=== PATIENT | male | born 1950 | race Caucasian/White ===

== ENCOUNTER 2022-04-18 06:13 | Day surgery (SDC) | payer MEDICARE ==
[~2022-04-18 06:13] MED LIST: ALPRAZolam 0.25 MG TAB PO PRN; ALPRAZolam 0.5 MG TAB PO PRN; ASPIRIN 325 MG TAB PO STA; ATORVASTATIN 80 MG TAB PO STA; HEPARIN SODIUM,PORCINE 10,000 UNIT in SODIUM CHLORIDE 0.9% 1,000 ML IRRIGATION PRN; HEPARIN SODIUM,PORCINE 2,500 UNIT in SODIUM CHLORIDE 0.9% 250 ML IRRIGATION PRN; NITROGLYCERIN SL TABS 0.4 MG TAB SUBLINGUAL PRN; SODIUM CHLORIDE 0.9% 1,000 ML in EMPTY BAG 1 BAG IV SCH
[2022-04-18] MEDS ORDERED: SODIUM CHLORIDE 0.9% 1,000 ML IV ONE (06:18)
[2022-04-18 06:56] LABS: Glucose,Whole Blood 176 mg/dL (70-110)
[2022-04-18] MEDS ORDERED: VERAPAMIL 2.5 MG/ML 2 ML AMP ONE (07:19)
[2022-04-18 07:30] VITALS: TEMP 98.8
[2022-04-18] MEDS ORDERED: LIDOCAINE 1% INJ 10MG/ML (5 ML VIAL-PF) SQ ONE (07:42)
[2022-04-18] MEDS ORDERED: MIDAZOLAM 2 MG/2 ML VIAL IV ONE (07:43)
[2022-04-18] MEDS ORDERED: HEPARIN SODIUM 1,000 UN/ML (10ML VL) ONE (07:45)
[2022-04-18] MEDS ORDERED: HEPARIN SODIUM 1,000 UN/ML (10ML VL) IV ONE (07:46)
[2022-04-18] MEDS ORDERED: VERAPAMIL SYRINGE (5 MG/10 ML) INTRAARTER ONE (07:46)
[2022-04-18] MEDS ORDERED: NITROGLYCERIN SL TABS 0.4 MG TAB SUBLINGUAL ONE ×2 (07:49→07:50)
[2022-04-18] MEDS ORDERED: IOPAMIDOL-370 125ML BTL INJ ONE (07:52)
--- NOTE | 2022-04-18 08:22 | P.CARDCATH ---
Description of Procedure: PROCEDURES PERFORMED: Left heart catheterization, bilateral coronary angiography INDICATION: Cardiomyopathy HISTORY: Patient is a pleasant 71-year-old male with history of persistent atrial fibrillation who presented with heart failure and found to have new-onset cardiomyopathy. Echo did not mention significant aortic stenosis however does have a harsh systolic murmur consistent with aortic stenosis. CONSENT:I have discussed the risks, benefits and alternative therapies for the above-mentioned procedure and for both sedation/analgesia as well as necessary blood product administration, if indicated, as they pertain to this patient. The patient has indicated understanding and acceptance of the risks and procedures discussed. PROCEDURE: After the risks, benefits and alternatives of the above mentioned procedure explained in detail with the patient, informed consent was obtained. Patient was taken to the catheterization lab and prepped and draped in usual fashion. 1% lidocaine was used to anesthetize the right radial artery. A 6- Czech sheath was placed in the right radial artery using modified Seldinger technique. Left coronary angiography was performed with a 5-Czech JL 3.5 catheter and right coronary angiography was performed with a 5-Czech JR5 catheter in various views. A 5-Czech AR2 catheter with a straight wire was inserted into the left ventricle and pressure measurements were obtained. The right radial sheath was removed and a TR band was placed with hemostasis achieved. The patient tolerated the procedure well. Patient was transported back to the post catheterization holding area in stable condition. Conscious Sedation: Patient was monitored under the direct supervision of vision of myself for conscious sedation using Versed and fentanyl for a total duration of 23 minutes HEMODYNAMICS: Aortic: 101/92 LV: 171/20, LVEDP 35 mean gradient 55 mmHg, peak to peak 80 mmHg SELECTIVE CORONARY ARTERIOGRAPHY: LEFT MAIN: The left main is a large caliber vessel which bifurcates into the LAD and circumflex. There is no significant stenosis. LEFT ANTERIOR DESCENDING CORONARY ARTERY: LAD is a large caliber vessel which wraps around to the apex. There are mild luminal irregularities including 10- 20% proximal and mid LAD stenosis. LEFT CIRCUMFLEX CORONARY ARTERY: Left circumflex is a large caliber vessel without significant stenosis. The circumflex gives off the PDA and is the dominant vessel RIGHT CORONARY ARTERY: The right coronary artery is a small caliber vessel which gives off an acute marginal branch and is nondominant. There is no significant stenosis. FINAL IMPRESSION: 1. Relatively normal coronary arteries with only 10-20% proximal and mid LAD stenosis. 2. Severe aortic stenosis with mean gradient 55 mmHg 3. Extremely elevated left sided filling pressures 4. Atrial fibrillation with mild RVR throughout procedure heart rates in the 100 to 115 range PLAN: 1. Aggressive risk factor modification per most recent ACC/AHA guidelines. 2. Increase diuresis 3. Further workup for severe aortic stenosis with SACHA for aortic valve replacement 4. Given continued uncontrolled A. fib rhythm control with amiodarone and SACHA cardioversion
[2022-04-18] MEDS ORDERED: BUMETANIDE 1 MG TAB PO SCH (09:00)
[2022-04-18 11:52] LABS: African American GFR (CKD) >90 (>60 ml/min/1.73 sqM); Anion Gap 7 mmol/L; Blood Urea Nitrogen 23 mg/dL (9-20); Calcium 8.7 mg/dL (8.4-10.2); Carbon Dioxide 32 mmol/L (22-30); Chloride 100 mmol/L (98-107); Glucose 174 mg/dL (74-99); Non-African American GFR(CKD) >90 (>60 ml/min/1.73 sqM); Potassium 3.8 mmol/L (3.5-5.1); Sodium 139 mmol/L (137-145)
[2022-04-18 14:12] VITALS: RESP 18
[2022-04-18 14:22] VITALS: BP 143/71; PULSE 106
== END 2022-04-18 13:12 | disposition home or self-care (01) ==
LOC: CATHCVL 06:13
PROVIDERS: ATTEND Internal Medicine
DX: I35.0 Nonrheumatic aortic (valve) stenosis (principal); I42.9 Cardiomyopathy, unspecified; I48.19 Other persistent atrial fibrillation; G47.33 Obstructive sleep apnea (adult) (pediatric); I11.0 Hypertensive heart disease with heart failure; I50.23 Acute on chronic systolic (congestive) heart failure; E78.5 Hyperlipidemia, unspecified; E11.9 Type 2 diabetes mellitus without complications; Z79.899 Other long term (current) drug therapy
CPT/HCPCS: 93458; 80048; C1769 ×2; C1894; J2250; J2001; J1644; Q9967

== ENCOUNTER → 2022-04-24 | Outpatient (CLI) | payer MEDICARE ==
[2022-04-24 10:35] LABS: Prothrombin Time 10.5 sec (9.0-12.0)
[2022-04-24 10:38] LABS: ALT 24 U/L (4-49); AST 35 U/L (17-59); African American GFR (CKD) >90 (>60 ml/min/1.73 sqM); Albumin 3.8 g/dL (3.5-5.0); Albumin/Globulin Ratio 1.3; Alkaline Phosphatase 80 U/L (38-126); Anion Gap 7 mmol/L; Blood Urea Nitrogen 17 mg/dL (9-20); Calcium 8.8 mg/dL (8.4-10.2); Carbon Dioxide 35 mmol/L (22-30); Chloride 93 mmol/L (98-107); Globulin 2.9 g/dL; Glucose 226 mg/dL (74-99); Magnesium 1.7 mg/dL (1.6-2.3); Non-African American GFR(CKD) 89 (>60 ml/min/1.73 sqM); Potassium 3.9 mmol/L (3.5-5.1); Sodium 135 mmol/L (137-145); Total Bilirubin 1.2 mg/dL (0.2-1.3); Total Protein 6.7 g/dL (6.3-8.2)
[2022-04-24 10:47] LABS: Basophils # (A) 0.1 k/uL (0-0.2); Basophils % (A) 1 %; Eosinophils # (A) 0.2 k/uL (0-0.7); Eosinophils % (A) 3 %; HGB 13.5 gm/dL (13.0-17.5); Lymphocytes # (A) 1.2 k/uL (1.0-4.8); Lymphocytes % (A) 18 %; MCH 31.6 pg (25.0-35.0); MCHC 33.6 g/dL (31.0-37.0); Mean Platelet Volume 7.5; Monocytes # (A) 0.3 k/uL (0-1.0); Monocytes % (A) 5 %; Neutrophils # (A) 4.5 k/uL (1.3-7.7); Neutrophils % (A) 71 %; Platelet Count 256 k/uL (150-450); RBC 4.25 m/uL (4.30-5.90); RDW 13.9 % (11.5-15.5); WBC 6.4 k/uL (3.8-10.6)
[2022-04-24 11:41] LABS: Appearance,Urine Clear (Clear); Bilirubin,Urine Negative (Negative); Blood,Urine Negative (Negative); Color,Urine Yellow; Glucose,Urine (UA) Negative (Negative); Ketones,Urine Trace (Negative); Leukocyte Esterase,Urine Negative (Negative); Mucus,Urine Occasional /hpf; Nitrite,Urine Negative (Negative); Protein,Urine 3+ (Negative); RBC,Urine <1 /hpf (0-5); Specific Gravity,Urine 1.028 (1.001-1.035); WBC,Urine 1 /hpf (0-5)
[2022-04-24 11:57] LABS: T4, Free (Free Thyroxine) 1.45 ng/dL (0.78-2.19)
--- NOTE | 2022-04-24 13:37 | CT ---
EXAMINATION TYPE: CT TAVR Planning DATE OF EXAM: 04/24/2022 HISTORY: TAVR planning CT DLP: 4497.20 mGycm Automated Exposure Control for Dose Reduction was Utilized. CONTRAST: CT scan of the chest, abdomen and pelvis is performed with IV Contrast, patient injected with 125 mL of Isovue 370. COMPARISON: None TECHNIQUE: Helical imaging obtained through the chest, abdomen and pelvis during arterial phase nelly moy administration of radiographic contrast intravenously. FINDINGS: See report from [facility] regarding preprocedural planning CHEST: Lower Neck and Thyroid: No significant findings Lungs: No pneumothorax. Trace bilateral pleural effusions with associated atelectasis. Right lower lo be 3 mm pulmonary nodule (series 10, image 59). Right upper lobe pulmonary nodule (series 10, image 5 2). Central Airway: No significant findings Pleura: No significant findings Pulmonary Arteries: No significant findings Heart and Pericardium: Mild cardiomegaly. No pericardial effusion. Marked aortic valvular calcificati ons. Mild coronary arterial calcifications. Lymph Nodes: No significant findings Mediastinum & Esophagus: Mildly prominent right paratracheal lymph nodes measuring less than [address] axis. Soft tissues: Bilateral gynecomastia. ABDOMEN/PELVIS: Please note arterial phase of the imaging limits detailed evaluation of the solid abdominal organs. Liver: No significant findings Spleen: No significant findings Kidneys: No significant findings Adrenal Glands: No significant findings Pancreas: No significant findings Gallbladder: No significant findings Bowel and Mesentery: No significant findings Lymph Nodes: No significant findings Urinary Bladder: No significant findings Pelvic Organs: No significant findings Other: Small fat filled hernia. Other Lines/Tubes/Devices/Hardware: None IMPRESSION: 1. Trace bilateral pleural effusions with mild cardiomegaly. 2. Mild coronary arterial calcifications which sign of coronary artery disease. 3. Severe calcification of the aortic valve.
--- NOTE | 2022-04-24 14:33 | US ---
EXAMINATION TYPE: US carotid duplex BILAT DATE OF EXAM: 04/24/2022 COMPARISON: NONE CLINICAL HISTORY: 71-year-old male I35.1 NONRHEUMATIC AORTIC (VALVE) INSUFFICIENCY. TECHNIQUE: Carotid duplex ultrasound examination. Indirect Doppler criteria was utilized. 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 IMPRESSION: Technically very difficult exam. No findings to suggest hemodynamically significant internal carotid artery stenosis on either side. Criteria for Assigning % of Stenosis / Diameter reduction (Estimation based on the indirect measurements of the internal carotid artery velocities (ICA PSV). 1. Normal (no stenosis)=ICA PSV < 125 cm/s: ratio < 2.0: ICA EDV<40 cm/s. 2. Less than 50% stenosis=ICA PSV < 125 cm/s: ratio < 2.0: ICA EDV<40 cm/s. 3. 50 to 69% stenosis=ICA PSV of 125 to 230 cm/s: ration 2.0 ? 4.0: ICA EDV 40-100 cm/s. 4. Greater than 70% stenosis to near occlusion= ICA PSV > 230 cm/s: ratio > 4.0: ICA EDV > 100 cm/s. 5. Near occlusion= ICA PSV velocities may be low or undetectable: variable ratio and ICA EDV. 6. Total occlusion=unable to detect flow.
[2022-04-24 18:42] LABS: Hepatitis A Antibody IgM Nonreactive (Nonreactive); Hepatitis B Core IgM Nonreactive (Nonreactive); Hepatitis B Surface Antigen Nonreactive (Nonreactive); Hepatitis C IgG Antibody Nonreactive (Nonreactive)
[2022-04-24 18:53] LABS: Chol/HDL Ratio 2.47 Ratio; LDL Cholesterol,Calculated 36.9 mg/dL (0.0-131.0)
== END | disposition home or self-care (01) ==
LOC: LABWHC1 09:10
PROVIDERS: ATTEND Thoracic Surgery (Cardiothoracic Vascular Surgery)
DX: Z01.818 Encounter for other preprocedural examination (principal); I35.1 Nonrheumatic aortic (valve) insufficiency; E87.8 Other disorders of electrolyte and fluid balance, not elsewhere classified; E07.9 Disorder of thyroid, unspecified; Z79.01 Long term (current) use of anticoagulants; I35.0 Nonrheumatic aortic (valve) stenosis; E11.9 Type 2 diabetes mellitus without complications; N28.9 Disorder of kidney and ureter, unspecified; E78.5 Hyperlipidemia, unspecified; R35.0 Frequency of micturition; Z79.899 Other long term (current) drug therapy; R58 Hemorrhage, not elsewhere classified
CPT/HCPCS: 94150; 84439; 83880; 80061; 80053; 80074; 84443; 83735; 85025; 85610; 85730; 81001; 87086; 83036; 93880; 71275; 36415 ×2; 74174; 93005; Q9967

== ENCOUNTER → 2022-04-29 | Day surgery (SDC) | payer MEDICARE ==
[~2022-04-29] MED LIST changes: -ALPRAZolam 0.25 MG TAB PO PRN; -ALPRAZolam 0.5 MG TAB PO PRN; +APIXABAN 5 MG TAB PO STA; -ASPIRIN 325 MG TAB PO STA; -ATORVASTATIN 80 MG TAB PO STA; +ETOMIDATE 2 MG/ML 10 ML VIAL ONE; -HEPARIN SODIUM,PORCINE 10,000 UNIT in SODIUM CHLORIDE 0.9% 1,000 ML IRRIGATION PRN; -HEPARIN SODIUM,PORCINE 2,500 UNIT in SODIUM CHLORIDE 0.9% 250 ML IRRIGATION PRN; +INSULIN ASPART (NovoLOG) 100 UNIT/ML VIAL SQ ONE; -NITROGLYCERIN SL TABS 0.4 MG TAB SUBLINGUAL PRN; +SODIUM CHLORIDE 0.9% 1,000 ML IV SCH; -SODIUM CHLORIDE 0.9% 1,000 ML in EMPTY BAG 1 BAG IV SCH
[2022-04-29 07:08] LABS: Glucose,Whole Blood 208 mg/dL (70-110)
--- NOTE | 2022-04-29 08:07 | P.TEE ---
Description of Procedure(s): Procedure performed: Transesophageal Echocardiogram with color flow doppler, pulsed wave doppler and continuous wave doppler, attempted cardioversion 2 Moderate conscious sedation: Moderate conscious sedation was supplied by anesthesia, see separate report Complications: none Indications: Severe aortic stenosis, systolic heart failure, atrial fibrillation PROCEDURE: After the risks, benefits and alternatives of the above mentioned procedure was explained in detail with the patient, informed consent was obtained. Patient was brought to the lab in a fasting state. Patient was given sedation by anesthesia. The throat was sprayed with Hurricane to anesthetize the throat. A lubricated Omni probe was then introduced into the esophagus and stomach and multiple views were obtained. 2D echo with color flow doppler, pulsed wave doppler and continuous wave doppler was utilized. Patient had difficulty oxygenating and therefore only limited views were able to be obtained. The probe was then removed. Attempted cardioversion 2 with 200 J however unsuccessful. Patient tolerated the procedure moderately well. Patient was transferred to the post procedure area in stable and satisfactory condition. FINDINGS: 1. The aortic valve is tricuspid with severe aortic stenosis. There is a calcified mobile echodensity of the commissure of the left and non coronary cusps which may represent a healed vegetation vs less likely primary cardiac mass. There is mild aortic insufficiency. 2. The mitral valve appears be normal with mild mitral regurgitation. 3. Tricuspid valve not fully evaluated. 4. The interatrial septum appears intact however no bubble study performed. 5. Left atrial appendage is free of clot. 6. Left ventricular ejection fraction 35%.
[2022-04-29 08:08] VITALS: TEMP 98
[2022-04-29 09:24] VITALS: PULSE 92; RESP 18
[2022-04-29 17:21] VITALS: BP 97/58
== END ==
LOC: CATHCVL 06:17
PROVIDERS: ATTEND Internal Medicine
DX: I08.0 Rheumatic disorders of both mitral and aortic valves (principal); I25.10 Atherosclerotic heart disease of native coronary artery without angina pectoris; I48.11 Longstanding persistent atrial fibrillation; I42.8 Other cardiomyopathies; I11.0 Hypertensive heart disease with heart failure; I50.23 Acute on chronic systolic (congestive) heart failure; E78.5 Hyperlipidemia, unspecified; G47.33 Obstructive sleep apnea (adult) (pediatric); Z99.89 Dependence on other enabling machines and devices; E11.9 Type 2 diabetes mellitus without complications; E03.9 Hypothyroidism, unspecified; Z79.890 Hormone replacement therapy; I87.2 Venous insufficiency (chronic) (peripheral); E66.01 Morbid (severe) obesity due to excess calories; Z68.43 Body mass index [BMI] 50.0-59.9, adult; N28.9 Disorder of kidney and ureter, unspecified; Z85.46 Personal history of malignant neoplasm of prostate; Z98.890 Other specified postprocedural states; Z79.84 Long term (current) use of oral hypoglycemic drugs; Z79.02 Long term (current) use of antithrombotics/antiplatelets; Z79.1 Long term (current) use of non-steroidal anti-inflammatories (NSAID); Z79.83 Long term (current) use of bisphosphonates; Z79.2 Long term (current) use of antibiotics; Z79.899 Other long term (current) drug therapy
CPT/HCPCS: 87040; 92960

== ENCOUNTER 2022-05-14 05:57 | Inpatient (IN) | payer MEDICARE ==
[2022-05-13 11:11] VITALS: BMI 50.9
[2022-05-14] MEDS ORDERED: CLOPIDOGREL 75 MG TAB PO ONE (06:00)
[2022-05-14] MEDS ORDERED: CLEVIDIPINE BUTYRATE 25 MG in EMPTY BAG 1 BAG IV PRN (06:00)
[2022-05-14] MEDS ORDERED: METOPROLOL TARTRATE 25 MG TAB PO ONE (06:00)
[2022-05-14] MEDS ORDERED: TRANEXAMIC ACID 2,000 MG in SODIUM CHLORIDE 0.9% 80 ML IV PRN (06:00)
[2022-05-14] MEDS ORDERED: PROTAMINE SULFATE 250 MG in EMPTY BAG 1 BAG IV PRN (06:00)
[2022-05-14] MEDS ORDERED: LACTATED RINGERS 1,000 ML IV SCH (06:00)
[2022-05-14] MEDS ORDERED: ATORVASTATIN 10 MG TAB PO ONE (06:00)
[2022-05-14] MEDS ORDERED: SODIUM CHLORIDE 0.9% 500 ML 500 ML INTRAARTER PRN (06:00)
[2022-05-14] MEDS ORDERED: INSULIN REGULAR 100 UNIT in SODIUM CHLORIDE 0.9% 100 ML IV PRN (06:00)
[2022-05-14] MEDS ORDERED: ASPIRIN 325 MG TAB PO ONE (06:00)
[2022-05-14] MEDS ORDERED: ELECTROLYTE-A SOLUTION 1,000 ML with POTASSIUM CHLORIDE 100 MEQ, MAGNESIUM SULFATE 16 M... IV PRN ×5 (06:00)
[2022-05-14] MEDS ORDERED: ceFAZolin 3 GM in SODIUM CHLORIDE 0.9% 100 ML IVPB ONE (06:00)
[2022-05-14] MEDS ORDERED: NITROGLYCERIN-D5W PMX 25 MG/250 ML BTL IV PRN (06:00)
[2022-05-14 06:31] LABS: Glucose,Whole Blood 255 mg/dL (70-110)
[2022-05-14] MEDS ORDERED: SODIUM CHLORIDE 0.9% 1,000 ML IV ONE ×2 (06:52→14:34)
[2022-05-14 06:54] LABS: HCT 37.9 % (39.0-53.0); HGB 12.8 gm/dL (13.0-17.5); MCH 30.5 pg (25.0-35.0); MCHC 33.9 g/dL (31.0-37.0); MCV 90.1 fL (80.0-100.0); Mean Platelet Volume 6.9; Platelet Count 273 k/uL (150-450); RBC 4.21 m/uL (4.30-5.90); RDW 14.3 % (11.5-15.5); WBC 11.5 k/uL (3.8-10.6)
[2022-05-14] MEDS: INSULIN ASPART (NovoLOG) 100 UNIT/ML VIAL SQ SCH (06:56)
[2022-05-14 07:01] LABS: Partial Thromboplastin Time 24.9 sec (22.0-30.0); Prothrombin Time 10.9 sec (9.0-12.0)
[2022-05-14 07:05] LABS: ALT 39 U/L (4-49); AST 32 U/L (17-59); African American GFR (CKD) >90 (>60 ml/min/1.73 sqM); Albumin 4.1 g/dL (3.5-5.0); Alkaline Phosphatase 99 U/L (38-126); Anion Gap 8 mmol/L; Blood Urea Nitrogen 30 mg/dL (9-20); Calcium 8.8 mg/dL (8.4-10.2); Carbon Dioxide 36 mmol/L (22-30); Chloride 92 mmol/L (98-107); Glucose 253 mg/dL (74-99); Non-African American GFR(CKD) 81 (>60 ml/min/1.73 sqM); Potassium 3.1 mmol/L (3.5-5.1); Sodium 136 mmol/L (137-145); Total Bilirubin 2.5 mg/dL (0.2-1.3); Total Protein 7.3 g/dL (6.3-8.2)
[2022-05-14] MEDS ORDERED: VERAPAMIL 2.5 MG/ML 2 ML AMP ONE ×2 (07:51→11:21)
[2022-05-14] MEDS ORDERED: FUROSEMIDE 10 MG/ML 4 ML VIAL IV STA (08:08)
--- NOTE | 2022-05-14 08:15 | XR ---
EXAMINATION TYPE: XR chest 1V portable DATE OF EXAM: 05/14/2022 COMPARISON: 08/09/2014 HISTORY: Scheduled for TAVR today, presented with leukocytosis and shortness of breath TECHNIQUE: Single frontal view of the chest is obtained. FINDINGS: The heart is enlarged and there is pulmonary vascular congestion. There are no focal airsp randi opacities. Calcified aortic arch. No acute osseous abnormalities. IMPRESSION: Early CHF.
[2022-05-14] MEDS ORDERED: POTASSIUM CHLORIDE 10 MEQ in WATER FOR INJECTION 1 100ML.BAG IVPB SCH (09:00)
[2022-05-14] MEDS ORDERED: POTASSIUM CHLORIDE ER 20 MEQ TAB.ER PO STA (09:10)
[2022-05-14] MEDS ORDERED: METOPROLOL TARTRATE 5 MG/5 ML VIAL IVP ONE (11:01)
[2022-05-14] MEDS ORDERED: fentaNYL (PF) 50 MCG/ML 2 ML AMP ONE (11:01)
[2022-05-14] MEDS ORDERED: ROCURONIUM 10 MG/ML (5 ML VIAL) IV ONE (11:01)
[2022-05-14] MEDS ORDERED: MIDAZOLAM 2 MG/2 ML VIAL ONE (11:01)
[2022-05-14] MEDS ORDERED: CALCIUM CHLORIDE 100 MG/ML 10 ML SYRINGE ONE (11:01)
[2022-05-14] MEDS ORDERED: HEPARIN SODIUM,PORCINE 10,000 UNIT/ML 1 ML VIAL ONE (11:01)
[2022-05-14] MEDS ORDERED: ETOMIDATE 2 MG/ML 10 ML VIAL ONE (11:01)
[2022-05-14] MEDS ORDERED: VASOPRESSIN 20 UNIT/ML 1 ML VIAL ONE (11:01)
[2022-05-14] MEDS ORDERED: ESMOLOL 100 MG/10 ML VIAL ONE (11:01)
[2022-05-14] MEDS ORDERED: LIDOCAINE 2% INJ 20 MG/ML (2 ML VIAL) ONE (11:01)
[2022-05-14] MEDS ORDERED: PHENYLEPHRINE-0.9% NACL SYG 1,000 MCG/10 ML SYRINGE ONE (11:01)
[2022-05-14] MEDS ORDERED: PROPOFOL 10 MG/ML 20 ML VIAL IV ONE (11:01)
[2022-05-14] MEDS ORDERED: PROTAMINE SULFATE 10 MG/ML 5 ML VIAL IV ONE (11:01)
[2022-05-14] MEDS ORDERED: SUCCINYLCHOLINE CHLORIDE 200 MG/10 ML VIAL IV ONE (11:01)
[2022-05-14] MEDS ORDERED: ONDANSETRON 4 MG/2 ML VIAL IVP PRN (13:29)
[2022-05-14] MEDS ORDERED: CALCIUM GLUCONATE IN NACL 2 GM in SALINE 1 100ML.BAG IVPB PRN (13:29)
[2022-05-14] MEDS ORDERED: traMADol 50 MG TAB PO PRN (13:29)
[2022-05-14] MEDS ORDERED: Potassium Replacement Protocol 1 EACH MISC MISCELLANE PRN ×2 (13:29→18:23)
[2022-05-14] MEDS ORDERED: NALOXONE 0.4 MG/ML 1 ML VIAL IV PRN (13:29)
[2022-05-14] MEDS ORDERED: IPRATROPIUM-ALBUTEROL 3 ML NEB INHALATION PRN (13:29)
[2022-05-14] MEDS ORDERED: ACETAMINOPHEN TAB 325 MG TAB PO PRN (13:29)
[2022-05-14] MEDS ORDERED: DEXTROSE 50% SYRINGE 50 ML IVP PRN ×2 (13:29)
[2022-05-14] MEDS ORDERED: Magnesium Replacement Protocol 1 EACH MISC MISCELLANE PRN ×2 (13:29→18:25)
[2022-05-14] MEDS ORDERED: bisacodyL 10 MG SUPP RECTAL PRN (13:29)
[2022-05-14] MEDS ORDERED: ARTIFICIAL TEARS-HYPROMELLOSE DROPS 15 ML BTL BOTH EYES PRN (13:29)
[2022-05-14] MEDS ORDERED: INSULIN REGULAR 100 UNIT in SODIUM CHLORIDE 0.9% 100 ML IV SCH (13:29)
--- NOTE | 2022-05-14 13:29 | P.ANPRN ---
Procedure Note - Anesthesia - SACHA Intraop Pre Bypass SACHA Intraop - Anesthesia Indication: Transcatheter aortic valve replacement Date of Procedure: 05/14/22 Pre-operative Diagnosis: Critical aortic stenosis Post-operative Diagnosis: Critical aortic stenosis status post transcatheter aortic valve replacement Surgeon: Sonia Prather Left Ventricle: Ejection fraction 20-25%. Global hyperkinesis seen. Left Ventricle Hypertrophy: Yes (Mild) R. Ventricle Function: Normal Aortic Valve: Severely calcified aortic valve seen. There is a mass sitting on the left coronary cusp which is mobile but it doesn't appear to be obstructing the left main system. The mass is a .25 centimeter in width. Mean gradient across the aortic valve is 72 mmHg and the peak gradient is 92 mmHg. Aortic valve area is 0.7 Cm2. Mild AI seen. Anatomy: Trileaflet Aortic Stenosis: Severe Aortic Regurgitation: Trace Mitral Stenosis: None Mitral Regurgitation: Moderate Tricuspid Stenosis: None Tricuspid Regurgitation: Mild Pulmonic Stenosis: None R. Atrial Dilation: No R. Atrial PFO: No L. Atrial Dilation: No Aortic Calcification: None Plural Effusion: None - SACHA Intraop Post Bypass SACHA Intraop Post Bypass Procedure Performed: Transcatheter aortic valve replacement Left Ventricle: Ejection fraction improved to 25-30% now. Regional Wall Motion Abnormalities: None R. Ventricle Function: Normal Aortic Valve: Prosthetic aortic valve seen in situ. Appears to be seated well. Peak gradient across the valve was 8 mmHg and mean gradient is 6 mm hg. There is a trace central aortic regurgitation and also a mild paravalvular leak seen. These doesn't appear to be hemodynamically significant. Mitral Valve: Unchanged Tricuspid: Unchanged Pulmonic: Unchanged Aortic Dissection: No
--- NOTE | 2022-05-14 13:36 | P.OP ---
Description of Procedure: Transcatheter Aoritc Valve Replacement Operative report PROCEDURE PERFORMED: 1. Percutaneous Aortic Valve Implantation using a 34 mm Evolut-FX. 2. Transesophageal echocardiography (performed by anesthesia) 3. Ultrasound guided access and repair of right femoral artery access site by Perclose closure device. 4. Placement of temporary pacemaker wire. 5. Aortic root angiography 6. [place] embolic protection device placement INDICATIONS: 1. 71 year-old with a history of severe symptomatic aortic valve stenosis. PERFORMING PHYSICIANS: 1. Federico Francisco DO Interventional Cardiology 2. Carlitos Arevalo MD Interventional Cardiology. 3. Sonia Prather MD, Cardiothoracic Surgeon. SEDATION: General anesthesia provided by anesthesia, see separate note APPROACH: Right femoral artery via percutaneous approach PROCEDURE DESCRIPTION: The patient was discussed at valve clinic with multidisciplinary approach with cardiothoracic surgeon as well as pcat instructor and thought better treated with TAVR. Risks, benefits, and alternatives of the procedure had been explained to the patient who understood the risks and agreed to proceed. After consents were obtained, patient was brought to the transcatheter aortic valve implantation room in the cardiac label printing machinist and general anesthesia was provided by the anesthesiologist (see separate report). Once full body sterile prep was performed, left femoral venous access was obtained and a temporary pacemaker was placed in the right ventricle. Pacing threshholds were checked and deemed appro priate. Next the left femoral artery was accessed using a modified Seldinger technique, ultrasound guidance and micropuncture technique. A 6 Burkinan Rabi sheath was placed in the left femoral artery. Next, a 6-Burkinan pigtail catheter was advanced into the aorta and positioned in the aortic root, aortic root angiography was performed to determine optimal deployment angle. The right femoral artery was accessed using modified Seldinger technique, micropuncture technique and under direct ultrasound guidance. Femoral angiogram was done showing access in the common femoral artery and a 6Fr sheath was placed. Next preclose technique was performed using 2 Percloses. Next a 0.035 Lunderquist wire was placed in the Aorta via a pigtail catheter. Over that the arteriotomy was serially dilated and a 18 Fr [place] sheath was placed. A 6-Burkinan radial sheath was placed in the right radial artery using modified Seldinger technique. The [place] device was advanced over a 0.014 wire and deployed in the innominate artery and left carotid artery. Next a 6F- AL1 catheter was advanced over a wire to the aortic root. A straight wire was advanced through the catheter and used to cross the severely stenotic valve. The AL1 was then exchanged for a 6Fr pigtail catheter and pressure measurements were obtained. The 0.035 Lunderquist wire was then positioned in the apex. Next a 34 mm Evolut-FX was advanced. The valve was then positioned across the aortic valve and confirmed with aortic root angiography. The valve was initially partially deployed and there was concern of a calcified mass on the left coronary leaflet possibly causing obstruction of the left main. With the valve partially deployed, there was no impingment on the left main. The valve was then fully deployed. There was some mild central regurgitation which appeared related to underexpanded valve and therefore the valve was post dilated with a 26mm Z Med balloon. The delivery system was withdrawn back into the arch and an aortic root injection in conjunction with SACHA demonstrated a satisfactory result. There was no para valvular leak. There was no evidence of any other significant abnormalities. The preclose Perclose was then deployed in the right femoral artery and hemostasis was achieved. The pigtail was then advanced to the level of the iliac bifurcation via the left femoral access. Femoral angiogram was performed that showed no contrast leak. The left femoral angiogram demonstrated an arteriotomy in the common femoral artery and this was repaired using a 6F angioseal device with complete hemostasis. The temporary venous pacemaker was removed and the left femoral venous sheath was removed and hemoastasis was achieved. The patient was then transported to the ICU in hemodynamically stable condition, requiring no pressor support. COMPLICATIONS: None CONCLUSION: 1. Implantaion of 34 Evolut-FX transcatheter aortic valve via right femoral approach under SACHA and fluoro guidance with no para-valvular aortic regurgitation. 2. Placement of temporary pacemaker wire 3. Aortic Root Aortogram. 4. Post TAVR balloon aortic valvuloplasty with a 26mm Z Med balloon RECOMMENDATIONS: The patient will be monitored in the ICU for hemodynamic and electrical stability. Patient will be on Eliquis and Plavix.
[2022-05-14] MEDS ORDERED: IOPAMIDOL-250 100ML BTL INTRAARTER ONE (13:37)
[2022-05-14 14:04] LABS: Glucose,Whole Blood 365 mg/dL (70-110)
[2022-05-14 14:24] LABS: ABG Base Excess 3.9 mmol/L; ABG HCO3 29 mmol/L (21-25); ABG Oxygen Saturation 98.4 % (94-97); ABG PCO2 53 mmHg (35-45); ABG PH 7.36 (7.35-7.45); ABG PO2 272 mmHg (83-108); ABG TCO2 31 mmol/L (19-24)
[2022-05-14 14:27] LABS: Allen Test Performed? no
[2022-05-14 14:32] LABS: Basophils % (A) 0 %; Eosinophils % (A) 0 %; HCT 38.6 % (39.0-53.0); HGB 12.4 gm/dL (13.0-17.5); Lymphocytes # (A) 1.1 k/uL (1.0-4.8); Lymphocytes % (A) 11 %; MCH 30.1 pg (25.0-35.0); MCHC 32.1 g/dL (31.0-37.0); MCV 93.7 fL (80.0-100.0); Mean Platelet Volume 7.4; Monocytes # (A) 0.5 k/uL (0-1.0); Monocytes % (A) 5 %; Neutrophils # (A) 8.2 k/uL (1.3-7.7); Neutrophils % (A) 82 %; Platelet Count 245 k/uL (150-450); RBC 4.11 m/uL (4.30-5.90); RDW 14.5 % (11.5-15.5)
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
[2022-05-14 14:33] LABS: INR 1.1 (<1.2); Prothrombin Time 11.1 sec (9.0-12.0)
--- NOTE | 2022-05-14 14:34 | XR ---
EXAMINATION TYPE: XR chest 1V portable DATE OF EXAM: 05/14/2022 2:29 PM COMPARISON: Chest radiographs from 05/14/2022 TECHNIQUE: XR chest 1V portable Portable AP radiograph of the chest. CLINICAL INDICATION:Male, 71 years old with history of Post Operative Cardiac Surgery; FINDINGS: Lungs/Pleura: No pleural effusion or pneumothorax. Linear right midlung opacity likely representing s carring or atelectasis. Pulmonary vascularity: Pulmonary vascular congestion. Heart/mediastinum: Cardiomediastinal silhouette is enlarged. Postsurgical changes from TAVR. Atheros clerotic calcifications are seen in the aorta. Musculoskeletal: No acute osseous pathology. Dorsal osteophytosis of the thoracic spine. Other findings: None Lines/Tubes: Endotracheal tube with distal tip 2.7 cm above the anton Nasogastric tube with its distal tip and side-port projecting under the diaphragm. IMPRESSION: 1. Cardiomegaly with pulmonary vascular congestion suggestive of CHF exacerbation. 2. Appropriate position of endotracheal and NG tubes.
[2022-05-14] MEDS: LACTATED RINGERS 1,000 ML IV SCH (14:39)
[2022-05-14] MEDS: NOREPINEPHRINE 4 MG in SODIUM CHLORIDE 0.9% 250 ML IV SCH ×2 (14:55→14:57)
[2022-05-14 15:02] LABS: Ionized Calcium 4.8 mg/dL (4.5-5.3)
[2022-05-14 15:08] LABS: Glucose,Whole Blood 270 mg/dL (70-110)
[2022-05-14 15:12] LABS: Albumin 3.8 g/dL (3.5-5.0); Calcium 8.7 mg/dL (8.4-10.2); Magnesium 1.7 mg/dL (1.6-2.3); Potassium 3.7 mmol/L (3.5-5.1); Total Bilirubin 2.3 mg/dL (0.2-1.3); Total Protein 6.7 g/dL (6.3-8.2)
--- NOTE | 2022-05-14 15:22 | IR ---
EXAMINATION TYPE: IR stent intravas non coronary DATE OF EXAM: 05/14/2022 CLINICAL HISTORY: TAVR TECHNIQUE: Fluoroscopy. COMPARISON: None. FINDINGS: Fluoroscopic guidance was provided during procedure performed by the coal crusher operator. A tota l of 22.9 minutes of fluoroscopic time was utilized during the procedure. Please see separate report for procedural details.. IMPRESSION: As Above.
[2022-05-14] MEDS: ceFAZolin 3 GM in SODIUM CHLORIDE 0.9% 100 ML IVPB SCH ×2 (15:52→23:38)
[2022-05-14] MEDS: HEPARIN SODIUM,PORCINE/PF 5,000 UNIT/0.5 ML SYRINGE SQ SCH ×2 (16:21→23:38)
[2022-05-14 16:25] LABS: Glucose,Whole Blood 229 mg/dL (70-110)
[2022-05-14] MEDS: IPRATROPIUM-ALBUTEROL 3 ML NEB INHALATION SCH ×3 (16:26→23:43)
[2022-05-14 17:29] LABS: Glucose,Whole Blood 221 mg/dL (70-110)
[2022-05-14 18:24] LABS: Glucose,Whole Blood 191 mg/dL (70-110)
[2022-05-14] MEDS: MAGNESIUM SULFATE-D5W PMX 1 GM in DEXTROSE/WATER 1 100ML.BAG IVPB SCH ×2 (18:46→21:20)
[2022-05-14] MEDS ORDERED: POTASSIUM BICARBONATE/CIT AC 20 MEQ TABLET.EFF NG-TUBE SCH (19:00)
--- NOTE | 2022-05-14 19:41 | OP ---
OPERATIVE REPORT CO-SURGEONS: Dr. Federico Francisco and Dr. Carlitos Arevalo. PREOPERATIVE DIAGNOSIS: Severe symptomatic aortic valve stenosis with a mobile calcification on the left cusp. POSTOPERATIVE DIAGNOSIS: Severe symptomatic aortic valve stenosis with a mobile calcification on the left cusp. PROCEDURES PERFORMED: 1. Insertion of a right ventricular temporary pacing wire via the right common femoral vein. 2. Deployment of a cerebral protection device sentinel. 3. Transcatheter aortic valve replacement using a 34 mm CoreValve FX. 4. Post dilatation with a 26 mm true balloon. DESCRIPTION OF PROCEDURE: The technical details will be dictated by Structural Cardiology. To mention that I fully participated in the initial deployment of a 34 mm CoreValve from Prevacus in proper anatomic position. SACHA showed essentially a valvular leak probably relating to a poor expansion of the valve. There was no paravalvular leak. For that reason, we decided to go with a post dilatation using a 26 mm balloon as the maximum annular diameter was 27 mm and that resulted into decreasing the central moderate aortic valve regurgitation to trace to mild. There were no changes to the patient's baseline atrial fibrillation and conduction. MMODL / IJN: [id number] /
[2022-05-14] MEDS: GLIMEPIRIDE 2 MG TAB PO SCH (19:57)
[2022-05-14 19:59] LABS: Glucose,Whole Blood 125 mg/dL (70-110)
[2022-05-14 21:16] LABS: Glucose,Whole Blood 143 mg/dL (70-110)
[2022-05-14] MEDS: DOCUSATE ORAL SOLN 100 MG/10 ML CUP NG-TUBE SCH (21:20)
[2022-05-14] MEDS: ATORVASTATIN 20 MG TAB PO SCH (21:20)
[2022-05-14] MEDS: FUROSEMIDE 10 MG/ML 4 ML VIAL IV SCH (21:20)
[2022-05-14] MEDS: AMIODARONE 200 MG TAB PO SCH (21:20)
[2022-05-14 22:04] LABS: Glucose,Whole Blood 156 mg/dL (70-110)
[2022-05-14 22:55] LABS: Glucose,Whole Blood 134 mg/dL (70-110)
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
[2022-05-15 00:01] LABS: Glucose,Whole Blood 133 mg/dL (70-110)
[2022-05-15] MEDS: NOREPINEPHRINE 4 MG in SODIUM CHLORIDE 0.9% 250 ML IV SCH (00:21)
[2022-05-15 03:09] LABS: Glucose,Whole Blood 137 mg/dL (70-110)
[2022-05-15] MEDS: IPRATROPIUM-ALBUTEROL 3 ML NEB INHALATION SCH ×6 (03:29→19:30)
[2022-05-15 04:12] LABS: Glucose,Whole Blood 157 mg/dL (70-110)
[2022-05-15 04:43] LABS: Basophils # (A) 0.1 k/uL (0-0.2); Basophils % (A) 1 %; Eosinophils # (A) 0.1 k/uL (0-0.7); Eosinophils % (A) 1 %; HCT 34.8 % (39.0-53.0); HGB 11.6 gm/dL (13.0-17.5); Lymphocytes % (A) 9 %; MCH 30.2 pg (25.0-35.0); MCHC 33.2 g/dL (31.0-37.0); Monocytes # (A) 0.7 k/uL (0-1.0); Monocytes % (A) 7 %; Neutrophils # (A) 8.8 k/uL (1.3-7.7); Neutrophils % (A) 81 %; Platelet Count 225 k/uL (150-450); RBC 3.83 m/uL (4.30-5.90); RDW 14.3 % (11.5-15.5); WBC 10.9 k/uL (3.8-10.6)
[2022-05-15 04:56] LABS: Ionized Calcium 4.6 mg/dL (4.5-5.3)
[2022-05-15 05:04] LABS: Albumin 3.3 g/dL (3.5-5.0); Calcium 8.2 mg/dL (8.4-10.2); Magnesium 1.9 mg/dL (1.6-2.3); Potassium 3.1 mmol/L (3.5-5.1); Total Bilirubin 1.6 mg/dL (0.2-1.3); Total Protein 6.1 g/dL (6.3-8.2)
[2022-05-15] MEDS: MAGNESIUM SULFATE-D5W PMX 1 GM in DEXTROSE/WATER 1 100ML.BAG IVPB SCH ×2 (05:25→06:32)
[2022-05-15] MEDS: POTASSIUM CHLORIDE 10 MEQ in WATER FOR INJECTION 1 100ML.BAG IVPB SCH ×4 (05:26→09:19)
[2022-05-15] MEDS: LEVOTHYROXINE 75 MCG TAB PO SCH (05:32)
[2022-05-15 05:52] LABS: Glucose,Whole Blood 167 mg/dL (70-110)
[2022-05-15 05:53] LABS: ABG Base Excess 10.4 mmol/L; ABG HCO3 35 mmol/L (21-25); ABG PCO2 51 mmHg (35-45); ABG PH 7.44 (7.35-7.45); ABG PO2 110 mmHg (83-108); ABG TCO2 36 mmol/L (19-24); Allen Test Performed? Yes
[2022-05-15 08:04] LABS: Glucose,Whole Blood 175 mg/dL (70-110)
[2022-05-15] MEDS: GLIMEPIRIDE 2 MG TAB PO SCH (08:07)
[2022-05-15] MEDS: ceFAZolin 3 GM in SODIUM CHLORIDE 0.9% 100 ML IVPB SCH (08:19)
[2022-05-15] MEDS: FUROSEMIDE 10 MG/ML 4 ML VIAL IV SCH ×2 (08:20→21:04)
--- NOTE | 2022-05-15 08:55 | XR ---
EXAMINATION TYPE: XR chest 1V portable DATE OF EXAM: 05/15/2022 Comparison: 05/14/2022 Clinical History: 71-year-old male Post Operative Cardiac Surgery Findings: Limited subdiaphragmatic right portable technique and large body habitus. Unable to adequately visual ize the distal aspect of the NG tube. ET tube tip 4.0 cm from the anton. Heart remains moderately en larged with diffuse interstitial density. There may be slight improving aeration in the right lower l maci. No appreciable pneumothorax. Impression: Moderate cardiomegaly and persistent pulmonary vascular congestion. Aeration may be slightly improvin g of the right lower lung.
[2022-05-15] MEDS ORDERED: PANTOPRAZOLE 40 MG/10 ML VIAL IV SCH (09:00)
[2022-05-15] MEDS ORDERED: bisacodyL 10 MG SUPP RECTAL PRN (09:00)
[2022-05-15] MEDS ORDERED: MAGNESIUM HYDROXIDE 2,400 MG/10 ML CUP PO PRN (09:00)
[2022-05-15 09:01] LABS: Glucose,Whole Blood 185 mg/dL (70-110)
[2022-05-15] MEDS: CLOPIDOGREL 75 MG TAB PO SCH (09:35)
[2022-05-15] MEDS: LACTOBACILLUS ACIDOPH & BULGAR 1 EACH PACKET PO SCH (09:35)
--- NOTE | 2022-05-15 09:35 | P.PN ---
Subjective Progress Note Date: 05/15/22 Principal diagnosis: Severe symptomatic aortic valve stenosis with mobile calcification on the left coronary cusp, NYHA class III symptoms. Past medical history significant for pe rsistent atrial fibrillation, cardiomyopathy, chronic systolic heart failure, COPD with a preoperative FEV1 showing a predicted value of 36% with a base volume of 1.06 L, hypertension, hyperlipidemia, obstructive sleep apnea with home CPAP use, history of prostate cancer, diabetes mellitus type 2 with a preoperative hemoglobin A1c of 8.6%, hypothyroid, psoriasis, remote history of nicotine dependence, anxiety, and depression. POD #1 Percutaneous Aortic Valve Implantation using a 34 mm Evolut-FX, Transesophageal echocardiography (performed by anesthesia), ultrasound guided access and repair of right femoral artery access site by Perclose closure device, placement of temporary pacemaker wire, aortic root angiography, and sentinel embolic protection device placement. The patient was seen and examined in follow-up today 05/15/2022 at his bedside in the intensive care unit. The patient remains sedated on propofol drip, intubated with mechanical ventilator support with current mechanical ventilator settings assist control 14, TV 550, FiO2 50% and PEEP of 10. Oxygen saturation on current mechanical ventilator settings are 96%. ABG results this morning show a pH of 7.44, pCO2 51, pO2 110, HCO3 35, oxygen saturation 97% and a base excess of 10.4. He was on a norepinephrine drip throughout the night for blood pressure support but has been currently off since around 6:30 this morning. Bedside telemetry is showing a new left bundle branch block with atrial fibrillation heart rate 94 BPM. Laboratory results this morning show a WBC count of 10.9, hemoglobin 11.6, hematocrit 34.8, platelets 225, sodium 140, potassium 3.1, CO2 34, BUN 25, creatinine 1.03, calcium 8.2, ionized calcium 4.6, magnesium 1.9, total bilirubin 1.6, AST 33 and ALT 29. Chest x-ray has been reviewed, with report showing moderate cardiomegaly and persistent pulmonary vascular congestion. Patient has been afebrile the last 24 hours with his T-max temperature 99.8F. Despite being sedated with propofol drip the patient is moving all 4 extremities with verbal stimuli. Chase catheter remains in place for accurate I's and O's with urine output 1.5 L in the last 8 hours. Objective - Vital Signs Vital signs: Vital Signs Temp 99.6 F 05/15/22 08:00 Pulse 108 H 05/15/22 08:00 Resp 14 05/15/22 08:00 BP 99/78 05/15/22 08:00 Pulse Ox 97 05/15/22 08:00 FiO2 50 05/15/22 08:00 Intake & Output 05/14/22 05/15/22 05/15/22 18:59 06:59 18:59 Intake Total 2173.086 1731.115 93.224 Output Total 825 1915 75 Balance 1348.086 -183.885 18.224 Weight 152 kg Intake: IV 900 276 23 ART Line 36 3 LR @ 20mls/hr 240 20 Intake, IV Titration 9076.329 9225.115 70.224 Amount Insulin Regular 100 unit 17.245 17.549 0 In Sodium Chloride 0.9% 100 ml @ Per Protocol IV .Q0M [facility] Rx#:[id number] Lactated Ringers 1,000 ml 100 20 @ 20 mls/hr IV .Q24H [facility] Rx#:[id number] Magnesium Sulfate-D5w Pmx 200 1 gm In Dextrose/Water 1 100ml.bag @ 100 mls/hr IVPB Q1H [facility] Rx#: [id number] Magnesium Sulfate-D5w Pmx 200 1 gm In Dextrose/Water 1 100ml.bag @ 100 mls/hr IVPB Q1H [facility] Rx#: [id number] Norepinephrine 4 mg In 5.985 291.198 Sodium Chloride 0.9% 250 ml @ 0.03 MCG/KG/MIN 17. 374 mls/hr IV .[id number] [facility] Rx#:[id number] Potassium Chloride 10 meq 200 In Water For Injection 1 100ml.bag @ 100 mls/hr IVPB Q1HR [facility] Rx#: [id number] Sodium Chloride 0.9% 1, 1000 000 ml @ 999 mls/hr IV . Q1H1M [facility] Rx#:[id number] ceFAZolin 3 gm In Sodium 100 Chloride 0.9% 100 ml @ 100 mls/hr IVPB Q8HR [facility] Rx#:[id number] propofoL 1,000 mg In 49.856 486.368 70.224 Empty Bag 1 bag @ Titrate IV .Q0M [facility] Rx#: [id number] Other 40 Output: Urine 825 1915 75 Other: Voiding Method Indwelling Catheter Indwelling Catheter ABP, PAP, CO, CI - Last Documented Arterial Blood Pressure 100/50 - Exam CONSTITUTIONAL: Letting in bed in the intensive care unit, remains sedated on propofol drip, and is intubated with mechanical ventilator support. HEENT: Neck is supple, no JVD, no lymphadenopathy. RESPIRATORY: Lungs sounds essentially clear throughout, diminished to his bilateral bases. Respirations are symmetrical and nonlabored with mechanical ventilator support. Current mechanical ventilator settings are assist control 14, TV 550, FiO2 50% and a PEEP of 10, oxygen saturations 96%. CARDIOVASCULAR: Irregular rhythm and controlled rate. S1 and S2 present, negative for S3, gallop or murmur. Palpable peripheral pulses bilaterally, +1 edema to his bilateral lower extremities. Knee-high GRETEL hose and sequential compression devices in place to his bilateral lower extremities. Bedside telemetry showing atrial fibrillation with left bundle branch block heart rate 94 BPM. GASTROINTESTINAL: Abdomen soft, nontender, nondistended. Obese. Active bowel sounds present 4 quadrants. OG tube in place to low intermittent wall suction. No guarding or rigidity. GENITOURINARY: Chase present draining clear, yellow urine. Urine output 1.5 L in the last 8 hours. INTEGUMENTARY: Skin is warm and dry with no evidence of clubbing or cyanosis. Bilateral groin incisions clean, dry and intact. Soft and nontender. NEUROLOGIC: Unable to accurately assess at this time as the patient remains sedated on propofol drip. He does move all 4 extremities with verbal stimuli. MUSKULOSKELETAL: Unable to accurately assess at this time as the patient remains sedated on propofol drip. He does move all 4 extremities with verbal stimuli. PSYCHIATRIC: Unable to accurately assess at this time as the patient remains sedated on propofol drip. INVASIVE LINES AND TUBES: Left radial arterial line remains in place and functioning. - Allied health notes Allied health notes reviewed: nursing - Labs CBC & Chem 7: 05/15/22 04:30 05/15/22 04:30 Labs: Abnormal Lab Results - Last 24 Hours (Table) 05/14/22 05/14/22 05/14/22 Range/Units 14:00 14:00 14:03 WBC (3.8-10.6) k/uL RBC 4.11 L (4.30-5.90) m/uL Hgb 12.4 L (13.0-17.5) gm/dL Hct 38.6 L (39.0-53.0) % Neutrophils # 8.2 H (1.3-7.7) k/uL ABG pCO2 (35-45) mmHg ABG pO2 (83-108) mmHg ABG HCO3 (21-25) mmol/L ABG Total CO2 (19-24) mmol/L ABG O2 Saturation (94-97) % Potassium (3.5-5.1) mmol/L Chloride 96 L (98-107) mmol/L Carbon Dioxide (22-30) mmol/L BUN 32 H (9-20) mg/dL Glucose 287 H (74-99) mg/dL POC Glucose (mg/dL) 365 H (70-110) mg/dL Calcium (8.4-10.2) mg/dL Total Bilirubin 2.3 H (0.2-1.3) mg/dL Total Protein (6.3-8.2) g/dL Albumin (3.5-5.0) g/dL 05/14/22 05/14/22 05/14/22 Range/Units 14:23 15:06 16:24 WBC (3.8-10.6) k/uL RBC (4.30-5.90) m/uL Hgb (13.0-17.5) gm/dL Hct (39.0-53.0) % Neutrophils # (1.3-7.7) k/uL ABG pCO2 53 H (35-45) mmHg ABG pO2 272 H (83-108) mmHg ABG HCO3 29 H (21-25) mmol/L ABG Total CO2 31 H (19-24) mmol/L ABG O2 Saturation 98.4 H (94-97) % Potassium (3.5-5.1) mmol/L Chloride (98-107) mmol/L Carbon Dioxide (22-30) mmol/L BUN (9-20) mg/dL Glucose (74-99) mg/dL POC Glucose (mg/dL) 270 H 229 H (70-110) mg/dL Calcium (8.4-10.2) mg/dL Total Bilirubin (0.2-1.3) mg/dL Total Protein (6.3-8.2) g/dL Albumin (3.5-5.0) g/dL 05/14/22 05/14/22 05/14/22 Range/Units 17:28 18:23 19:55 WBC (3.8-10.6) k/uL RBC (4.30-5.90) m/uL Hgb (13.0-17.5) gm/dL Hct (39.0-53.0) % Neutrophils # (1.3-7.7) k/uL ABG pCO2 (35-45) mmHg ABG pO2 (83-108) mmHg ABG HCO3 (21-25) mmol/L ABG Total CO2 (19-24) mmol/L ABG O2 Saturation (94-97) % Potassium (3.5-5.1) mmol/L Chloride (98-107) mmol/L Carbon Dioxide (22-30) mmol/L BUN (9-20) mg/dL Glucose (74-99) mg/dL POC Glucose (mg/dL) 221 H 191 H 125 H (70-110) mg/dL Calcium (8.4-10.2) mg/dL Total Bilirubin (0.2-1.3) mg/dL Total Protein (6.3-8.2) g/dL Albumin (3.5-5.0) g/dL 05/14/22 05/14/22 05/14/22 Range/Units 21:14 22:02 22:53 WBC (3.8-10.6) k/uL RBC (4.30-5.90) m/uL Hgb (13.0-17.5) gm/dL Hct (39.0-53.0) % Neutrophils # (1.3-7.7) k/uL ABG pCO2 (35-45) mmHg ABG pO2 (83-108) mmHg ABG HCO3 (21-25) mmol/L ABG Total CO2 (19-24) mmol/L ABG O2 Saturation (94-97) % Potassium (3.5-5.1) mmol/L Chloride (98-107) mmol/L Carbon Dioxide (22-30) mmol/L BUN (9-20) mg/dL Glucose (74-99) mg/dL POC Glucose (mg/dL) 143 H 156 H 134 H (70-110) mg/dL Calcium (8.4-10.2) mg/dL Total Bilirubin (0.2-1.3) mg/dL Total Protein (6.3-8.2) g/dL Albumin (3.5-5.0) g/dL 05/14/22 05/15/22 05/15/22 Range/Units 23:59 03:07 04:10 WBC (3.8-10.6) k/uL RBC (4.30-5.90) m/uL Hgb (13.0-17.5) gm/dL Hct (39.0-53.0) % Neutrophils # (1.3-7.7) k/uL ABG pCO2 (35-45) mmHg ABG pO2 (83-108) mmHg ABG HCO3 (21-25) mmol/L ABG Total CO2 (19-24) mmol/L ABG O2 Saturation (94-97) % Potassium (3.5-5.1) mmol/L Chloride (98-107) mmol/L Carbon Dioxide (22-30) mmol/L BUN (9-20) mg/dL Glucose (74-99) mg/dL POC Glucose (mg/dL) 133 H 137 H 157 H (70-110) mg/dL Calcium (8.4-10.2) mg/dL Total Bilirubin (0.2-1.3) mg/dL Total Protein (6.3-8.2) g/dL Albumin (3.5-5.0) g/dL 05/15/22 05/15/22 05/15/22 Range/Units 04:30 04:30 05:49 WBC 10.9 H (3.8-10.6) k/uL RBC 3.83 L (4.30-5.90) m/uL Hgb 11.6 L (13.0-17.5) gm/dL Hct 34.8 L (39.0-53.0) % Neutrophils # 8.8 H (1.3-7.7) k/uL ABG pCO2 51 H (35-45) mmHg ABG pO2 110 H (83-108) mmHg ABG HCO3 35 H (21-25) mmol/L ABG Total CO2 36 H (19-24) mmol/L ABG O2 Saturation (94-97) % Potassium 3.1 L (3.5-5.1) mmol/L Chloride (98-107) mmol/L Carbon Dioxide 34 H (22-30) mmol/L BUN 25 H (9-20) mg/dL Glucose 139 H (74-99) mg/dL POC Glucose (mg/dL) (70-110) mg/dL Calcium 8.2 L (8.4-10.2) mg/dL Total Bilirubin 1.6 H (0.2-1.3) mg/dL Total Protein 6.1 L (6.3-8.2) g/dL Albumin 3.3 L (3.5-5.0) g/dL 05/15/22 05/15/22 05/15/22 Range/Units 05:51 08:02 09:00 WBC (3.8-10.6) k/uL RBC (4.30-5.90) m/uL Hgb (13.0-17.5) gm/dL Hct (39.0-53.0) % Neutrophils # (1.3-7.7) k/uL ABG pCO2 (35-45) mmHg ABG pO2 (83-108) mmHg ABG HCO3 (21-25) mmol/L ABG Total CO2 (19-24) mmol/L ABG O2 Saturation (94-97) % Potassium (3.5-5.1) mmol/L Chloride (98-107) mmol/L Carbon Dioxide (22-30) mmol/L BUN (9-20) mg/dL Glucose (74-99) mg/dL POC Glucose (mg/dL) 167 H 175 H 185 H (70-110) mg/dL Calcium (8.4-10.2) mg/dL Total Bilirubin (0.2-1.3) mg/dL Total Protein (6.3-8.2) g/dL Albumin (3.5-5.0) g/dL Microbiology - Last 24 Hours (Table) 05/14/22 16:40 Gram Stain - Preliminary Sputum Sputum Culture - Preliminary - Imaging and Cardiology Chest x-ray: report reviewed, image reviewed Assessment and Plan Assessment: 1. Severe symptomatic aortic valve stenosis with mobile calcification on the left coronary cusp, status post percutaneous Aortic Valve Implantation using a Medtronic 34 mm Evolut-FX 2. Chronic systolic heart failure, NYHA class III symptoms 3. Persistent atrial fibrillation 4. COPD with a preoperative FEV1 1 showing a predicted value of 36% with a base volume of 1.06 L 5. Hypertension 6. Hyperlipidemia 7. Obstructive sleep apnea with home CPAP use 8. History of prostate cancer 9. Diabetes mellitus type 2 with a preoperative hemoglobin A1c of 8.6% 10. Hypothyroid 11. Psoriasis 12. Remote history of nicotine dependence 13. History of anxiety 14. History of depression Plan: 1. Continue Plavix, Eliquis, Lasix, beta jordy and statin. 2. Continue amiodarone 400 mg by mouth twice a day for atrial fibrillation prophylaxis. 3. Transthoracic 2-D echocardiogram completed this morning with report pending. 4. Send serial troponins, secondary to his new left bundle branch block. Send proBNP level. Results pending. 5. Mechanical ventilator and propofol management per home artery/critical care recommendations. 6. Continue to monitor daily labs and chest x-ray. 7. Once the patient is extubated encourage use of incentive spirometry 10 times every hour while awake. 8. GI and DVT prophylaxis. 9. Once the patient is extubated remove Chase catheter, bladder scan every 6 hours and when necessary postvoid residual. 10. Once patient is extubated increase activity as tolerated, out of bed for all meals, ambulate as tolerated with assistance. Patient will be instructed to hold bilateral groins with coughing, or sneezing. 11. Continue to monitor daily labs and chest x-rays. Electrolyte replacement per protocol. 12. More recommendations to follow based on patient's clinical course. Time with Patient: Greater than 30
[2022-05-15] MEDS: AMIODARONE 200 MG TAB PO SCH ×2 (09:36→21:03)
[2022-05-15] MEDS: DOCUSATE ORAL SOLN 100 MG/10 ML CUP NG-TUBE SCH (09:37)
[2022-05-15] MEDS: APIXABAN 5 MG TAB PO SCH ×2 (09:37→21:03)
[2022-05-15] MEDS: MULTIVITAMINS, THERA 1 EACH TAB PO SCH (09:37)
[2022-05-15] MEDS: TAMSULOSIN 0.4 MG CAP.ER.24H PO SCH (09:37)
[2022-05-15] MEDS: METOPROLOL SUCCINATE (ER) 100 MG TAB.ER.24H PO SCH (09:41)
--- NOTE | 2022-05-15 09:52 | P.PN ---
Subjective Progress Note Date: 05/15/22 This is a 71-year-old male patient was currently being seen in the intensive care unit following his percutaneous aortic valve implantation/to have her procedure. The patient has symptomatic severe aortic stenosis. The patient was seen and the valve clinic and the patient was given the procedure today. The patient is currently postop day #0. The approach was the right femoral approach. The patient is morbidly obese. He was unable to lay down flat without having any major difficulties. Based on that, the patient was intubated and he was Intubated postop and he was brought into the intensive care unit on a mechanical ventilator on assist control mode at the rate of 14, tidal volume of 550, FiO2 of 100% with a PEEP of 10. His current pulse ox is 98%. He is sedated with propofol running at 10 mcg/kg/m. Blood gases are still pending for now. Chest x-ray post procedure shows ET tube being in a good location. The patient also has an OG tube in place. The patient has widened mediastinum and cardiomegaly. Mild pulmonary vascular congestion is also seen. At this point in time, the patient's blood pressure is in order of 80/58 based on arterial line. Pulse ox is 98%. Blood. Still pending. Urine output is in order of 100 mL in the Chase catheter. Note that the Chase catheter was just inserted. Note that this is a higher risk case. The patient is known to have severe aortic stenosis at baseline. The patient also has a cardiomyopathy with an ejection fraction of 35-40%. His preoperative FEV1 is 1 L. He is known to have obstructive sleep apnea maintained on CPAP therapy. He has history of prostate cancer, diabetes, hypothyroidism, hypertension hyperlipidemia and previous history of psoriasis, chronic atrial fibrillation. WBC count is11.5 with a hemoglobin of 12.8. Normal coagulation profile. serum bicarb of 36 and a sodium of 136 and a potassium level of 3.1. Blood sugars at 253. 05/15/2022, the patient remains intubated. He was kept intubated the mechanical ventilator overnight as the patient is morbidly obese and he was borderline hypotensive postop and he was sedated and based on his underlying obesity and sleep apnea, we decided to proceed with morning extubation. This procedure was unsuccessful yesterday. This morning, he has taken off the propofol and the patient is receiving a sedation holiday. Gradually waking up. He is ventilated is currently at a rate of 14, tidal volume of 550, FiO2 of 50% with a PEEP of 10. Peak air pressures around 30. Blood gas showed a pH of 7.44 with a pCO2 51 and pO2 of 110. Chest x-ray shows cardiomegaly, if she was in a good location, no airspace disease. No consolidation. No evidence of any pneumothorax. There is some mild pulmonary vascular congestion as noted earlier. Otherwise, the patient is producing adequate amount of urine output. He was placed on pressors and norepinephrine is currently off. The patient is also off insulin drip. His blood sugars under adequate control. His proBNP level was 857. He is afebrile. He is hemodynamically stable. He remains in atrial fibrillation. He does have an underlying bundle branch block pattern also. Objective - Vital Signs Vital signs: Vital Signs Temp 99.6 F 05/15/22 08:00 Pulse 109 H 05/15/22 09:30 Resp 15 05/15/22 09:30 BP 99/78 05/15/22 08:00 Pulse Ox 97 05/15/22 09:30 FiO2 50 05/15/22 08:00 Intake & Output 05/14/22 05/15/22 05/15/22 18:59 06:59 18:59 Intake Total 2173.086 1731.115 416.224 Output Total 825 1915 750 Balance 1348.086 -183.885 -333.776 Weight 152 kg Intake: IV 900 276 346 ART Line 36 6 LR @ 20mls/hr 240 40 Potassium Chloride 10 meq 200 In Water For Injection 1 100ml.bag @ 100 mls/hr IVPB Q1HR [facility] Rx#: [id number] ceFAZolin 3 gm In Sodium 100 Chloride 0.9% 100 ml @ 100 mls/hr IVPB Q8HR [facility] Rx#:[id number] Intake, IV Titration 7325.017 7505.115 70.224 Amount Insulin Regular 100 unit 17.245 17.549 0 In Sodium Chloride 0.9% 100 ml @ Per Protocol IV .Q0M [facility] Rx#:[id number] Lactated Ringers 1,000 ml 100 20 @ 20 mls/hr IV .Q24H [facility] Rx#:[id number] Magnesium Sulfate-D5w Pmx 200 1 gm In Dextrose/Water 1 100ml.bag @ 100 mls/hr IVPB Q1H [facility] Rx#: [id number] Magnesium Sulfate-D5w Pmx 200 1 gm In Dextrose/Water 1 100ml.bag @ 100 mls/hr IVPB Q1H [facility] Rx#: [id number] Norepinephrine 4 mg In 5.985 291.198 Sodium Chloride 0.9% 250 ml @ 0.03 MCG/KG/MIN 17. 374 mls/hr IV .[id number] [facility] Rx#:[id number] Potassium Chloride 10 meq 200 In Water For Injection 1 100ml.bag @ 100 mls/hr IVPB Q1HR [facility] Rx#: [id number] Sodium Chloride 0.9% 1, 1000 000 ml @ 999 mls/hr IV . Q1H1M [facility] Rx#:[id number] ceFAZolin 3 gm In Sodium 100 Chloride 0.9% 100 ml @ 100 mls/hr IVPB Q8HR [facility] Rx#:[id number] propofoL 1,000 mg In 49.856 486.368 70.224 Empty Bag 1 bag @ Titrate IV .Q0M [facility] Rx#: [id number] Oral 0 Tube Feeding 0 Blood Product 0 Other 40 Output: Urine 825 1915 750 Other: Voiding Method Indwelling Catheter Indwelling Catheter ABP, PAP, CO, CI - Last Documented Arterial Blood Pressure 119/53 - Exam Morbidly obese, calm and comfortable was sedated, not acute distress, currently off propofol Head exam was generally normal. There was no scleral icterus or corneal arcus. Mucous membranes were moist. Patient is intubated on mechanical ventilator. Orogastric and orotracheal tube are both in place. Neck was supple and without jugular venous distension, thyromegaly, or carotid bruits. Carotids were easily palpable bilaterally. There was no adenopathy. Neck is short and the patient significant crowding of the posterior pharynx and he has a thick neck consistent with AMY Lungs sounds are diminished bilaterally no wheezes or rhonchi. Heart sounds are irregular, positive S1-S2 consistent with Entyvio fibrillation. Overall heart sounds are distant. Abdomen is morbidly obese. Organs cannot be palpated. No direct tenderness or rebound tenderness or guarding. Extremities trace edema and there is no cyanosis or clubbing and the patient is diminished pulse in lower extremities bilaterally. Neurologically, the patient is sedated and is calm and comfortable. - Labs CBC & Chem 7: 05/15/22 04:30 05/15/22 04:30 Labs: Abnormal Lab Results - Last 24 Hours (Table) 05/14/22 05/14/22 05/14/22 Range/Units 14:00 14:00 14:03 WBC (3.8-10.6) k/uL RBC 4.11 L (4.30-5.90) m/uL Hgb 12.4 L (13.0-17.5) gm/dL Hct 38.6 L (39.0-53.0) % Neutrophils # 8.2 H (1.3-7.7) k/uL ABG pCO2 (35-45) mmHg ABG pO2 (83-108) mmHg ABG HCO3 (21-25) mmol/L ABG Total CO2 (19-24) mmol/L ABG O2 Saturation (94-97) % Potassium (3.5-5.1) mmol/L Chloride 96 L (98-107) mmol/L Carbon Dioxide (22-30) mmol/L BUN 32 H (9-20) mg/dL Glucose 287 H (74-99) mg/dL POC Glucose (mg/dL) 365 H (70-110) mg/dL Calcium (8.4-10.2) mg/dL Total Bilirubin 2.3 H (0.2-1.3) mg/dL Total Protein (6.3-8.2) g/dL Albumin (3.5-5.0) g/dL 05/14/22 05/14/22 05/14/22 Range/Units 14:23 15:06 16:24 WBC (3.8-10.6) k/uL RBC (4.30-5.90) m/uL Hgb (13.0-17.5) gm/dL Hct (39.0-53.0) % Neutrophils # (1.3-7.7) k/uL ABG pCO2 53 H (35-45) mmHg ABG pO2 272 H (83-108) mmHg ABG HCO3 29 H (21-25) mmol/L ABG Total CO2 31 H (19-24) mmol/L ABG O2 Saturation 98.4 H (94-97) % Potassium (3.5-5.1) mmol/L Chloride (98-107) mmol/L Carbon Dioxide (22-30) mmol/L BUN (9-20) mg/dL Glucose (74-99) mg/dL POC Glucose (mg/dL) 270 H 229 H (70-110) mg/dL Calcium (8.4-10.2) mg/dL Total Bilirubin (0.2-1.3) mg/dL Total Protein (6.3-8.2) g/dL Albumin (3.5-5.0) g/dL 05/14/22 05/14/22 05/14/22 Range/Units 17:28 18:23 19:55 WBC (3.8-10.6) k/uL RBC (4.30-5.90) m/uL Hgb (13.0-17.5) gm/dL Hct (39.0-53.0) % Neutrophils # (1.3-7.7) k/uL ABG pCO2 (35-45) mmHg ABG pO2 (83-108) mmHg ABG HCO3 (21-25) mmol/L ABG Total CO2 (19-24) mmol/L ABG O2 Saturation (94-97) % Potassium (3.5-5.1) mmol/L Chloride (98-107) mmol/L Carbon Dioxide (22-30) mmol/L BUN (9-20) mg/dL Glucose (74-99) mg/dL POC Glucose (mg/dL) 221 H 191 H 125 H (70-110) mg/dL Calcium (8.4-10.2) mg/dL Total Bilirubin (0.2-1.3) mg/dL Total Protein (6.3-8.2) g/dL Albumin (3.5-5.0) g/dL 05/14/22 05/14/22 05/14/22 Range/Units 21:14 22:02 22:53 WBC (3.8-10.6) k/uL RBC (4.30-5.90) m/uL Hgb (13.0-17.5) gm/dL Hct (39.0-53.0) % Neutrophils # (1.3-7.7) k/uL ABG pCO2 (35-45) mmHg ABG pO2 (83-108) mmHg ABG HCO3 (21-25) mmol/L ABG Total CO2 (19-24) mmol/L ABG O2 Saturation (94-97) % Potassium (3.5-5.1) mmol/L Chloride (98-107) mmol/L Carbon Dioxide (22-30) mmol/L BUN (9-20) mg/dL Glucose (74-99) mg/dL POC Glucose (mg/dL) 143 H 156 H 134 H (70-110) mg/dL Calcium (8.4-10.2) mg/dL Total Bilirubin (0.2-1.3) mg/dL Total Protein (6.3-8.2) g/dL Albumin (3.5-5.0) g/dL 05/14/22 05/15/22 05/15/22 Range/Units 23:59 03:07 04:10 WBC (3.8-10.6) k/uL RBC (4.30-5.90) m/uL Hgb (13.0-17.5) gm/dL Hct (39.0-53.0) % Neutrophils # (1.3-7.7) k/uL ABG pCO2 (35-45) mmHg ABG pO2 (83-108) mmHg ABG HCO3 (21-25) mmol/L ABG Total CO2 (19-24) mmol/L ABG O2 Saturation (94-97) % Potassium (3.5-5.1) mmol/L Chloride (98-107) mmol/L Carbon Dioxide (22-30) mmol/L BUN (9-20) mg/dL Glucose (74-99) mg/dL POC Glucose (mg/dL) 133 H 137 H 157 H (70-110) mg/dL Calcium (8.4-10.2) mg/dL Total Bilirubin (0.2-1.3) mg/dL Total Protein (6.3-8.2) g/dL Albumin (3.5-5.0) g/dL 05/15/22 05/15/22 05/15/22 Range/Units 04:30 04:30 05:49 WBC 10.9 H (3.8-10.6) k/uL RBC 3.83 L (4.30-5.90) m/uL Hgb 11.6 L (13.0-17.5) gm/dL Hct 34.8 L (39.0-53.0) % Neutrophils # 8.8 H (1.3-7.7) k/uL ABG pCO2 51 H (35-45) mmHg ABG pO2 110 H (83-108) mmHg ABG HCO3 35 H (21-25) mmol/L ABG Total CO2 36 H (19-24) mmol/L ABG O2 Saturation (94-97) % Potassium 3.1 L (3.5-5.1) mmol/L Chloride (98-107) mmol/L Carbon Dioxide 34 H (22-30) mmol/L BUN 25 H (9-20) mg/dL Glucose 139 H (74-99) mg/dL POC Glucose (mg/dL) (70-110) mg/dL Calcium 8.2 L (8.4-10.2) mg/dL Total Bilirubin 1.6 H (0.2-1.3) mg/dL Total Protein 6.1 L (6.3-8.2) g/dL Albumin 3.3 L (3.5-5.0) g/dL 05/15/22 05/15/22 05/15/22 Range/Units 05:51 08:02 09:00 WBC (3.8-10.6) k/uL RBC (4.30-5.90) m/uL Hgb (13.0-17.5) gm/dL Hct (39.0-53.0) % Neutrophils # (1.3-7.7) k/uL ABG pCO2 (35-45) mmHg ABG pO2 (83-108) mmHg ABG HCO3 (21-25) mmol/L ABG Total CO2 (19-24) mmol/L ABG O2 Saturation (94-97) % Potassium (3.5-5.1) mmol/L Chloride (98-107) mmol/L Carbon Dioxide (22-30) mmol/L BUN (9-20) mg/dL Glucose (74-99) mg/dL POC Glucose (mg/dL) 167 H 175 H 185 H (70-110) mg/dL Calcium (8.4-10.2) mg/dL Total Bilirubin (0.2-1.3) mg/dL Total Protein (6.3-8.2) g/dL Albumin (3.5-5.0) g/dL Microbiology - Last 24 Hours (Table) 01/25/23 16:40 Gram Stain - Preliminary Sputum Sputum Culture - Preliminary Assessment and Plan Plan: Severe symptomatic aortic stenosis, post continuous cortical replacement/tavern the patient is postop day #1 Acute hypercapnic respiratory failure, the patient was Intubated and placed on a mechanical ventilator. Noted the patient is morbidly obese and he has obstructive sleep apnea and the background Hypotension, postop, could be related to hypovolemia and the patient will be resuscitated with IV fluids. Noted the patient also had an underlying cardiomyopathy with ejection fraction of 35% the patient is currently on IV fluids at 30 mL an hour. The patient is currently off pressors. Chronic atrial fibrillation, rate is controlled for now, the patient also has a LBBB pattern which is of a new onset Systolic heart failure chronic with an ejection fraction of 30-35% Diabetes mellitus, currently off insulin drip COPD Hypertension Hyperlipidemia Chronic [place] Heart class III dyspnea secondary to above. History of prostate cancer Hypothyroidism Morbid obesity History of psoriasis Plan Patient off sedation and check weaning parameters We'll give the patient is both his breathing trial with a pressure support of 8 and a PEEP of 5 We will going to consider extubated to BiPAP probably at a pressures of 12-15/5 cm of water and will make further adjustments based on his respiratory status. FiO2 will be also titrated Chest x-ray was reviewedAbnormal. The Monitor hemodynamics and urine output give the patient 1 L of normal saline bolus and use pressors if needed Put the patient on insulin SS for blood sugar control Synthroid Surgical one-sided dry clean and intact. We'll need to check a hemoglobin for now. IV Lasix 40 mg every 12 hours We'll monitor his course and will decide on extubation based on his overall progress over the next few hours. Echocardiogram today Will follow , currently care evaluation, more than 30 minutes Time with Patient: Greater than 30
[2022-05-15] MEDS: LACTATED RINGERS 1,000 ML IV SCH (10:20)
[2022-05-15 10:24] LABS: ABG Base Excess 9.6 mmol/L; ABG HCO3 34 mmol/L (21-25); ABG Oxygen Saturation 97.2 % (94-97); ABG PCO2 50 mmHg (35-45); ABG PH 7.44 (7.35-7.45); ABG PO2 118 mmHg (83-108); ABG TCO2 35 mmol/L (19-24)
[2022-05-15] MEDS: INSULIN ASPART (NovoLOG) 100 UNIT/ML VIAL SQ SCH ×4 (11:04→21:04)
[2022-05-15 11:39] LABS: Glucose,Whole Blood 204 mg/dL (70-110)
[2022-05-15 12:03] LABS: Allen Test Performed? NO
--- NOTE | 2022-05-15 12:08 | CA ---
Transthoracic Echo Report Name: Larry Orozco Age: 71 Gender: M : 1950 Exam Date: 05/15/2022 07:51 Exam Location: [facility] Ht (in): 68 Wt (lb): 335 Ordering Physician: Tiffany Edwards Attending/Referring Phys: [id number], Grace Sandblast Carver Hellen Ty RDCS Procedure CPT: Indications: post TAVR Cardiac Hx: Technical Quality: Very technically difficult study Contrast 1: Lumason Total Dose (mL): 5 Contrast 2: Total Dose (mL): MEASUREMENTS (Male / Female) Normal Values 2D ECHO LV Diastolic Diameter PLAX 5.7 cm 4.2 - 5.9 / 3.9 - 5.3 cm LV Systolic Diameter PLAX 5.0 cm IVS Diastolic Thickness 1.5 cm 0.6 - 1.0 / 0.6 - 0.9 cm LVPW Diastolic Thickness 1.3 cm 0.6 - 1.0 / 0.6 - 0.9 cm LV Relative Wall Thickness 0.5 LVOT Diameter 1.9 cm LA Volume 136.4 cm??? 18 - 58 / 22 - 52 cm??? DOPPLER AV Peak Velocity 226.6 cm/s AV Peak Gradient 20.5 mmHg AV Mean Velocity 110.6 cm/s AV Mean Gradient 10.5 mmHg AV Velocity Time Integral 25.2 cm LVOT Peak Velocity 160.4 cm/s LVOT Peak Gradient 10.3 mmHg LVOT Velocity Time Integral 28.7 cm LVOT Stroke Volume 78.2 cm??? LVOT Stroke Volume Index 30.7 ml/m??? LVOT Cardiac Index 2777.5 cm???/min???m??? AV Area Cont Eq vti 3.1 cm??? AV Area Cont Eq pk 1.9 cm??? TR Peak Velocity 163.6 cm/s TR Peak Gradient 10.7 mmHg Right Ventricular Systolic Press 15.7 mmHg FINDINGS Left Ventricle Moderately increased septal wall thickness. Reduced global left ventricular systolic function. Left ventricular ejection fraction is estimated at 25-30 %. Right Ventricle Right ventricle not well visualized. Right ventricular systolic pressure within normal limits. Right Atrium Right atrium not well visualized. Left Atrium Severely increased left atrial volume. Moderately increased left atrial area. Mitral Valve Mild mitral annular calcification. [id number] mitral regurgitation. Aortic Valve S/P TAVR. Normally functioning bioprosthetic aortic valve without stenosis with a peak velocity of 2.3 m/s, peak gradient 21 mmHg, mean gradient 11 mmHg, and estimated aortic valve area of 1.9 cm???. No central aortic regurgitation. Tricuspid Valve Structurally normal tricuspid valve. Mild tricuspid regurgitation. Pulmonic Valve Pulmonic valve not well visualized. Pericardium No pericardial effusion. Aorta Normal size aortic root and proximal ascending aorta. CONCLUSIONS Cardiomyopathy with severe LV dysfunction Normally functioning bioprosthetic valve in aortic position Previewed by: Dr. Mo Hayden MD (Electronically Signed) Final Date: 15 May 2022 12:07
--- NOTE | 2022-05-15 12:20 | P.PN ---
Subjective Progress Note Date: 05/15/22 - Reason for Consult Consult date: 05/14/22 Medical management - Chief Complaint Status post transcatheter aortic valve replacement - History of Present Illness Patient is a 71-year-old male with a known history of hypertension, hyperlipidemia, diabetes type 2 [id number], obstructive sleep apnea, atrial fibrillation on anticoagulation with Eliquis was admitted to the hospital for elective transcatheter aortic valve replacement. Patient has symptomatic severe aortic stenosis. Patient is postoperative day 0. He was intubated perioperatively and was transferred to MICU. Patient is currently sedated with propofol. Chest x-ray showed cardiomegaly with pulmonary vascular congestion suggestive of CHF exacerbation. Appropriate position of endotracheal and NG tube. Laboratory data showed WBC 10.0, hemoglobin 12.4 and platelets 245 sodium 137 potassium 3.7 chloride 96 bicarb is 29 BUN 32 and creatinine 1.14 and blood sugar is 365. Magnesium 1.7 Patient is currently on insulin drip for better blood sugar control. A1c level was 8.6 on 04/24/2022. 05/15/2022 Patient is seen and evaluated in follow-up this morning currently on a sedation holiday working on weaning and extubating this morning. Patient is post TAVR and continues in the ICU with multiple medical consultations following. Propofol sedation has been discontinued patient is awake and following commands able to nod yes or no and opening eyes awaiting respiratory per extubation protocol. Patient's potassium was slightly low at 3.1 this morning and being replaced per protocol. Patient also on insulin drip with history of diabetes type 2 [id number] and we will transition off the drip and recommend sliding scale and close monitoring of Accu-Cheks before meals and at bedtime and at 2 AM. Patient is currently afebrile although having low-grade temps of 99.7- 99.8. Review of systems: Unable to completely assess as patient is being weaned off sedation Active Medications Acetaminophen (Acetaminophen Tab 325 Mg Tab) 650 mg PO Q4HR PRN PRN Reason: Fever and/or Mild Pain Last Admin: 05/15/22 09:37 Dose: 650 mg Albuterol/Ipratropium (Ipratropium-Albuterol 3 Ml Neb) 3 ml INHALATION RT-Q4H [facility] Last Admin: 05/15/22 11:27 Dose: 3 ml Albuterol/Ipratropium (Ipratropium-Albuterol 3 Ml Neb) 3 ml INHALATION RT-Q2H PRN PRN Reason: Shortness Of Breath Or Wheezing Amiodarone HCl (Amiodarone 200 Mg Tab) 400 mg PO BID [facility] Last Admin: 05/15/22 09:36 Dose: 400 mg Apixaban (Apixaban 5 Mg Tab) 5 mg PO BID [facility]; Protocol Last Admin: 05/15/22 09:37 Dose: 5 mg Artificial Tears (Artificial Tears-Hypromellose Drops 15 Ml Btl) 1 drops BOTH EYES Q4HR PRN PRN Reason: Dry Eye(s) Atorvastatin Calcium (Atorvastatin 20 Mg Tab) 20 mg PO HS [facility] Last Admin: 05/14/22 21:20 Dose: 20 mg Bisacodyl (Bisacodyl 10 Mg Supp) 10 mg RECTAL DAILY PRN PRN Reason: Constipation Clopidogrel Bisulfate (Clopidogrel 75 Mg Tab) 75 mg PO DAILY [facility] Last Admin: 05/15/22 09:35 Dose: 75 mg Dextrose/Water (Dextrose 50% Syringe 50 Ml) 25 ml IVP PER PROTOCOL PRN; Protocol PRN Reason: Hypoglycemia Dextrose/Water (Dextrose 50% Syringe 50 Ml) 50 ml IVP PER PROTOCOL PRN; Protocol PRN Reason: Hypoglycemia Docusate Sodium (Docusate Oral Soln 100 Mg/10 Ml Cup) 100 mg NG-TUBE BID [facility] Last Admin: 05/15/22 09:37 Dose: 100 mg Furosemide (Furosemide 10 Mg/Ml 4 Ml Vial) 40 mg IV Q12HR [facility] Last Admin: 05/15/22 08:20 Dose: 40 mg Lactated Ringer's (Lactated Ringers) 1,000 mls @ 20 mls/hr IV .Q24H [facility] Last Admin: 05/15/22 10:20 Dose: Not Given Calcium Gluconate/Sodium (Chloride 2 gm/ IV Solution) 100 mls @ 100 mls/hr IVPB ONCE PRN PRN Reason: Ionized Calcium less than 4.4 Stop: 06/13/22 13:30 Insulin Aspart (Insulin Aspart (Novolog) 100 Unit/Ml Vial) 0 unit SQ ACHS [facility]; Protocol Last Admin: 05/15/22 11:45 Dose: 4 unit Lactobacillus Acidoph/Bulgaricus (Lactobacillus Acidoph & Bulgar 1 Each Packet) 1 each PO DAILY [facility] Last Admin: 05/15/22 09:35 Dose: 1 each Levothyroxine Sodium (Levothyroxine 75 Mcg Tab) 225 mcg PO 0630 [facility] Last Admin: 05/15/22 05:32 Dose: 225 mcg Magnesium Hydroxide (Magnesium Hydroxide 2,400 Mg/10 Ml Cup) 2,400 mg PO BID PRN PRN Reason: Constipation Last Admin: 05/15/22 09:37 Dose: 2,400 mg Metoprolol Succinate (Metoprolol Succinate (Er) 100 Mg Tab.Er.24h) 100 mg PO DAILY [facility] Last Admin: 05/15/22 09:41 Dose: 100 mg Miscellaneous Information (Potassium Replacement Protocol 1 Each Misc) 1 each MISCELLANE DAILY PRN PRN Reason: Per Protocol Miscellaneous Information (Magnesium Replacement Protocol 1 Each Misc) 1 each MISCELLANE DAILY PRN; Protocol PRN Reason: Per Protocol Miscellaneous Information (Potassium Replacement Protocol 1 Each Misc) 1 each MISCELLANE DAILY PRN; Protocol PRN Reason: Per Protocol Miscellaneous Information (Magnesium Replacement Protocol 1 Each Misc) 1 each MISCELLANE DAILY PRN; Protocol PRN Reason: Per Protocol Multivitamins (Multivitamins, Thera 1 Each Tab) 1 each PO DAILY [facility] Last Admin: 05/15/22 09:37 Dose: 1 each Naloxone HCl (Naloxone 0.4 Mg/Ml 1 Ml Vial) 0.2 mg IV Q2M PRN PRN Reason: Opioid Reversal Ondansetron HCl (Ondansetron 4 Mg/2 Ml Vial) 4 mg IVP Q6HR PRN PRN Reason: Nausea And Vomiting Pantoprazole Sodium (Pantoprazole 40 Mg/10 Ml Vial) 40 mg IV DAILY [facility] Last Admin: 05/15/22 08:20 Dose: 40 mg Tamsulosin HCl (Tamsulosin 0.4 Mg Cap.Er.24h) 0.4 mg PO DAILY [facility] Last Admin: 05/15/22 09:37 Dose: 0.4 mg Tramadol HCl (Tramadol 50 Mg Tab) 50 mg PO Q6H PRN PRN Reason: Pain PHYSICAL EXAMINATION: Patient is lying in the bed. Currently on mechanical ventilator and sedated. HEENT: Normocephalic. Neck is supple. Pupils reactive. Nostrils clear. Oral cavity is moist. Neck reveals no JVD, carotid bruits, or thyromegaly. CHEST EXAMINATION: Trachea is central. Symmetrical expansion. Lung hernandez clear to auscultation and percussion. Bibasilar diminished sounds. CARDIAC: Normal S1, S2 with no gallops. No murmurs ABDOMEN: Soft. Bowel sounds present. Nontender. No organomegaly. No abdominal bruits. Extremities: reveal no edema. No clubbing or cyanosis Neurologically patient is sedated and intubated. No gross focal neurological deficits noted Skin: No rash or skin lesions. Psychiatric: Could not be assessed., Musculoskeletal: No joint swelling or deformity. Assessment: S/p TAVR due to severe symptomatic aortic stenosis. Postoperative day 1 Acute hypercapnic respiratory failure and was intubated. Currently on mechanical ventilator working on weaning with possible extubation today, 05/15/2022. Chronic atrial fibrillation on anticoagulation with Eliquis Cardiomyopathy with severe LV dysfunction, EF 25-30% Chronic systolic heart failure Hyperglycemia with uncontrolled diabetes type 2 with A1c level 8.6 [id number] Hypertension Hyperlipidemia COPD History of prostate cancer Hypothyroidism History of psoriasis Morbid obesity BMI 51.0 Full code Plan: Patient is currently in the MICU and is on mechanical ventilator, full sedation has been turned off and working on extubation possibly today with respiratory at bedside Patient is maintained on anticoagulation with Eliquis and also on Plavix. Vascular surgery along with pulmonary public health technologist following closely. echo shows moderately increased septal wall thickness with reduced global left ventricular systolic function and EF is estimated at 25-30% with some mild mitral annular calcification and mild to moderate right regurgitation, cardiomyopathy with severe LV dysfunction Patient was continued on insulin drip per protocol and does have history of diabetes type 2 [id number] although uncontrolled with hyperglycemia recommend transitioning from insulin drip to sliding scale with Accu-Cheks before meals and at bedtime and 2 AM and will add long-acting once patient is back on diet. A1c level was 8.6. Patient has been transitioned to oral amiodarone and also maintained on IV Lasix twice daily and metoprolol Patient does have history of COPD although not in exacerbation and recommend continuing with DuoNeb's. Pulmonary is following as well. We will continue to follow and make further recommendations based on clinical course Due to multiple complex medical issues, prognosis is guarded Thank you Kindly for this consultation. A copy of this dictation will be sent to primary care provider Dr. Fredrick Weiss The impression and plan of care has been dictated by Didi Dover, Nurse Practitioner as directed. Dr. Wilfrido MD I have performed a history and examination and MDM of this patient, discussed the same with the dictator, and agree with the dictator's assessment and plan as written ,documented as a scribe. Based on total visit time, I have performed more than 50% of the visit. Objective - Vital Signs Vital signs: Vital Signs Temp 99.6 F 05/15/22 08:00 Pulse 108 H 05/15/22 08:00 Resp 14 05/15/22 08:00 BP 99/78 05/15/22 08:00 Pulse Ox 97 05/15/22 08:00 FiO2 50 05/15/22 07:34 Intake & Output 05/14/22 05/15/22 05/15/22 18:59 06:59 18:59 Intake Total 2173.086 1731.115 84.712 Output Total 825 1915 75 Balance 1348.086 -183.885 9.712 Weight 152 kg Intake: IV 900 276 23 ART Line 36 3 LR @ 20mls/hr 240 20 Intake, IV Titration 7928.953 2961.115 61.712 Amount Insulin Regular 100 unit 17.245 17.549 0 In Sodium Chloride 0.9% 100 ml @ Per Protocol IV .Q0M [facility] Rx#:[id number] Lactated Ringers 1,000 ml 100 20 @ 20 mls/hr IV .Q24H [facility] Rx#:[id number] Magnesium Sulfate-D5w Pmx 200 1 gm In Dextrose/Water 1 100ml.bag @ 100 mls/hr IVPB Q1H [facility] Rx#: [id number] Magnesium Sulfate-D5w Pmx 200 1 gm In Dextrose/Water 1 100ml.bag @ 100 mls/hr IVPB Q1H [facility] Rx#: [id number] Norepinephrine 4 mg In 5.985 291.198 Sodium Chloride 0.9% 250 ml @ 0.03 MCG/KG/MIN 17. 374 mls/hr IV .[id number] [facility] Rx#:[id number] Potassium Chloride 10 meq 200 In Water For Injection 1 100ml.bag @ 100 mls/hr IVPB Q1HR [facility] Rx#: [id number] Sodium Chloride 0.9% 1, 1000 000 ml @ 999 mls/hr IV . Q1H1M [facility] Rx#:[id number] ceFAZolin 3 gm In Sodium 100 Chloride 0.9% 100 ml @ 100 mls/hr IVPB Q8HR [facility] Rx#:[id number] propofoL 1,000 mg In 49.856 486.368 61.712 Empty Bag 1 bag @ Titrate IV .Q0M [facility] Rx#: [id number] Other 40 Output: Urine 825 1915 75 Other: Voiding Method Indwelling Catheter Indwelling Catheter ABP, PAP, CO, CI - Last Documented Arterial Blood Pressure 100/50 - Labs CBC & Chem 7: 05/15/22 04:30 05/15/22 04:30 Labs: Abnormal Lab Results - Last 24 Hours (Table) 05/14/22 05/14/22 05/14/22 Range/Units 14:00 14:00 14:03 WBC (3.8-10.6) k/uL RBC 4.11 L (4.30-5.90) m/uL Hgb 12.4 L (13.0-17.5) gm/dL Hct 38.6 L (39.0-53.0) % Neutrophils # 8.2 H (1.3-7.7) k/uL ABG pCO2 (35-45) mmHg ABG pO2 (83-108) mmHg ABG HCO3 (21-25) mmol/L ABG Total CO2 (19-24) mmol/L ABG O2 Saturation (94-97) % Potassium (3.5-5.1) mmol/L Chloride 96 L (98-107) mmol/L Carbon Dioxide (22-30) mmol/L BUN 32 H (9-20) mg/dL Glucose 287 H (74-99) mg/dL POC Glucose (mg/dL) 365 H (70-110) mg/dL Calcium (8.4-10.2) mg/dL Total Bilirubin 2.3 H (0.2-1.3) mg/dL Total Protein (6.3-8.2) g/dL Albumin (3.5-5.0) g/dL 05/14/22 05/14/22 05/14/22 Range/Units 14:23 15:06 16:24 WBC (3.8-10.6) k/uL RBC (4.30-5.90) m/uL Hgb (13.0-17.5) gm/dL Hct (39.0-53.0) % Neutrophils # (1.3-7.7) k/uL ABG pCO2 53 H (35-45) mmHg ABG pO2 272 H (83-108) mmHg ABG HCO3 29 H (21-25) mmol/L ABG Total CO2 31 H (19-24) mmol/L ABG O2 Saturation 98.4 H (94-97) % Potassium (3.5-5.1) mmol/L Chloride (98-107) mmol/L Carbon Dioxide (22-30) mmol/L BUN (9-20) mg/dL Glucose (74-99) mg/dL POC Glucose (mg/dL) 270 H 229 H (70-110) mg/dL Calcium (8.4-10.2) mg/dL Total Bilirubin (0.2-1.3) mg/dL Total Protein (6.3-8.2) g/dL Albumin (3.5-5.0) g/dL 05/14/22 05/14/22 05/14/22 Range/Units 17:28 18:23 19:55 WBC (3.8-10.6) k/uL RBC (4.30-5.90) m/uL Hgb (13.0-17.5) gm/dL Hct (39.0-53.0) % Neutrophils # (1.3-7.7) k/uL ABG pCO2 (35-45) mmHg ABG pO2 (83-108) mmHg ABG HCO3 (21-25) mmol/L ABG Total CO2 (19-24) mmol/L ABG O2 Saturation (94-97) % Potassium (3.5-5.1) mmol/L Chloride (98-107) mmol/L Carbon Dioxide (22-30) mmol/L BUN (9-20) mg/dL Glucose (74-99) mg/dL POC Glucose (mg/dL) 221 H 191 H 125 H (70-110) mg/dL Calcium (8.4-10.2) mg/dL Total Bilirubin (0.2-1.3) mg/dL Total Protein (6.3-8.2) g/dL Albumin (3.5-5.0) g/dL 05/14/22 05/14/22 05/14/22 Range/Units 21:14 22:02 22:53 WBC (3.8-10.6) k/uL RBC (4.30-5.90) m/uL Hgb (13.0-17.5) gm/dL Hct (39.0-53.0) % Neutrophils # (1.3-7.7) k/uL ABG pCO2 (35-45) mmHg ABG pO2 (83-108) mmHg ABG HCO3 (21-25) mmol/L ABG Total CO2 (19-24) mmol/L ABG O2 Saturation (94-97) % Potassium (3.5-5.1) mmol/L Chloride (98-107) mmol/L Carbon Dioxide (22-30) mmol/L BUN (9-20) mg/dL Glucose (74-99) mg/dL POC Glucose (mg/dL) 143 H 156 H 134 H (70-110) mg/dL Calcium (8.4-10.2) mg/dL Total Bilirubin (0.2-1.3) mg/dL Total Protein (6.3-8.2) g/dL Albumin (3.5-5.0) g/dL 05/14/22 05/15/22 05/15/22 Range/Units 23:59 03:07 04:10 WBC (3.8-10.6) k/uL RBC (4.30-5.90) m/uL Hgb (13.0-17.5) gm/dL Hct (39.0-53.0) % Neutrophils # (1.3-7.7) k/uL ABG pCO2 (35-45) mmHg ABG pO2 (83-108) mmHg ABG HCO3 (21-25) mmol/L ABG Total CO2 (19-24) mmol/L ABG O2 Saturation (94-97) % Potassium (3.5-5.1) mmol/L Chloride (98-107) mmol/L Carbon Dioxide (22-30) mmol/L BUN (9-20) mg/dL Glucose (74-99) mg/dL POC Glucose (mg/dL) 133 H 137 H 157 H (70-110) mg/dL Calcium (8.4-10.2) mg/dL Total Bilirubin (0.2-1.3) mg/dL Total Protein (6.3-8.2) g/dL Albumin (3.5-5.0) g/dL 05/15/22 05/15/22 05/15/22 Range/Units 04:30 04:30 05:49 WBC 10.9 H (3.8-10.6) k/uL RBC 3.83 L (4.30-5.90) m/uL Hgb 11.6 L (13.0-17.5) gm/dL Hct 34.8 L (39.0-53.0) % Neutrophils # 8.8 H (1.3-7.7) k/uL ABG pCO2 51 H (35-45) mmHg ABG pO2 110 H (83-108) mmHg ABG HCO3 35 H (21-25) mmol/L ABG Total CO2 36 H (19-24) mmol/L ABG O2 Saturation (94-97) % Potassium 3.1 L (3.5-5.1) mmol/L Chloride (98-107) mmol/L Carbon Dioxide 34 H (22-30) mmol/L BUN 25 H (9-20) mg/dL Glucose 139 H (74-99) mg/dL POC Glucose (mg/dL) (70-110) mg/dL Calcium 8.2 L (8.4-10.2) mg/dL Total Bilirubin 1.6 H (0.2-1.3) mg/dL Total Protein 6.1 L (6.3-8.2) g/dL Albumin 3.3 L (3.5-5.0) g/dL 05/15/22 05/15/22 Range/Units 05:51 08:02 WBC (3.8-10.6) k/uL RBC (4.30-5.90) m/uL Hgb (13.0-17.5) gm/dL Hct (39.0-53.0) % Neutrophils # (1.3-7.7) k/uL ABG pCO2 (35-45) mmHg ABG pO2 (83-108) mmHg ABG HCO3 (21-25) mmol/L ABG Total CO2 (19-24) mmol/L ABG O2 Saturation (94-97) % Potassium (3.5-5.1) mmol/L Chloride (98-107) mmol/L Carbon Dioxide (22-30) mmol/L BUN (9-20) mg/dL Glucose (74-99) mg/dL POC Glucose (mg/dL) 167 H 175 H (70-110) mg/dL Calcium (8.4-10.2) mg/dL Total Bilirubin (0.2-1.3) mg/dL Total Protein (6.3-8.2) g/dL Albumin (3.5-5.0) g/dL Microbiology - Last 24 Hours (Table) 05/14/22 16:40 Gram Stain - Preliminary Sputum Sputum Culture - Preliminary
[2022-05-15] MEDS: POTASSIUM CHLORIDE ER 20 MEQ TAB.ER PO SCH ×3 (14:04→21:03)
[2022-05-15 16:43] LABS: Glucose,Whole Blood 206 mg/dL (70-110)
[2022-05-15 20:41] LABS: Glucose,Whole Blood 204 mg/dL (70-110)
[2022-05-15] MEDS: ATORVASTATIN 20 MG TAB PO SCH (21:03)
[2022-05-15] MEDS: DOCUSATE ORAL SOLN 100 MG/10 ML CUP PO SCH (21:04)
[2022-05-16 06:07] LABS: Glucose,Whole Blood 174 mg/dL (70-110)
[2022-05-16] MEDS: LEVOTHYROXINE 75 MCG TAB PO SCH (06:12)
[2022-05-16] MEDS: INSULIN ASPART (NovoLOG) 100 UNIT/ML VIAL SQ SCH ×2 (06:12→12:09)
[2022-05-16 06:18] LABS: Basophils # (A) 0.1 k/uL (0-0.2); Basophils % (A) 1 %; Eosinophils # (A) 0.1 k/uL (0-0.7); Eosinophils % (A) 1 %; HGB 11.2 gm/dL (13.0-17.5); Lymphocytes # (A) 1.2 k/uL (1.0-4.8); Lymphocytes % (A) 14 %; MCH 30.2 pg (25.0-35.0); MCHC 32.8 g/dL (31.0-37.0); MCV 91.9 fL (80.0-100.0); Mean Platelet Volume 7.4; Monocytes # (A) 0.6 k/uL (0-1.0); Monocytes % (A) 7 %; Neutrophils # (A) 6.4 k/uL (1.3-7.7); Neutrophils % (A) 75 %; Platelet Count 235 k/uL (150-450); RDW 14.3 % (11.5-15.5); WBC 8.5 k/uL (3.8-10.6)
[2022-05-16 06:36] LABS: Albumin 3.5 g/dL (3.5-5.0); Magnesium 2.1 mg/dL (1.6-2.3); Potassium 3.4 mmol/L (3.5-5.1); Total Bilirubin 2.2 mg/dL (0.2-1.3); Total Protein 6.5 g/dL (6.3-8.2)
[2022-05-16] MEDS: POTASSIUM CHLORIDE ER 20 MEQ TAB.ER PO SCH ×3 (06:55→07:51)
--- NOTE | 2022-05-16 07:16 | XR ---
EXAMINATION TYPE: XR chest 1V portable DATE OF EXAM: 05/16/2022 COMPARISON: 05/15/2022 INDICATION: Postop cardiac surgery TECHNIQUE: Single frontal view of the chest is obtained. FINDINGS: The heart size is moderately prominent. The pulmonary vasculature is normal. Mild left lower lobe infiltrate is present. Correlate for atelectasis or pneumonia. IMPRESSION: 1. Mild left lower lobe infiltrate. Correlate for atelectasis or pneumonia. Continued follow-up is re commended.
[2022-05-16] MEDS ORDERED: PANTOPRAZOLE 40 MG TABLET PO SCH (07:30)
[2022-05-16] MEDS: FUROSEMIDE 10 MG/ML 4 ML VIAL IV SCH (07:49)
[2022-05-16] MEDS: MULTIVITAMINS, THERA 1 EACH TAB PO SCH (07:50)
[2022-05-16] MEDS: CLOPIDOGREL 75 MG TAB PO SCH (07:50)
[2022-05-16] MEDS: APIXABAN 5 MG TAB PO SCH (07:50)
[2022-05-16] MEDS: LACTOBACILLUS ACIDOPH & BULGAR 1 EACH PACKET PO SCH (07:51)
[2022-05-16] MEDS: TAMSULOSIN 0.4 MG CAP.ER.24H PO SCH (07:51)
[2022-05-16] MEDS: DOCUSATE ORAL SOLN 100 MG/10 ML CUP PO SCH (07:51)
[2022-05-16] MEDS: METOPROLOL SUCCINATE (ER) 100 MG TAB.ER.24H PO SCH (07:52)
[2022-05-16] MEDS: IPRATROPIUM-ALBUTEROL 3 ML NEB INHALATION SCH ×2 (08:00→12:11)
[2022-05-16 08:08] VITALS: TEMP 97.9
[2022-05-16 08:20] VITALS: RESP 20
[2022-05-16] MEDS ORDERED: AMIODARONE 200 MG TAB PO SCH (09:00)
[2022-05-16] MEDS ORDERED: METOPROLOL SUCCINATE (ER) 25 MG TAB.ER.24H PO ONE (09:00)
--- NOTE | 2022-05-16 10:55 | P.DS ---
Providers Date of admission: 05/14/22 05:57 Expected date of discharge: 05/16/22 Attending physician: Federico Francisco DO Consults: 05/14/22 06:00 Consult to Anesthesia Routine Consulting Provider: Anesthesia,Services Consult Reason/Comments: Cardiac Surgery Pre-Op 05/14/22 13:29 Consult Physician Routine Consulting Provider: Mariano Andujar Consult Reason/Comments: [employer] Consult: post cardiac surgery Do you want consulting provider notified?: Yes Consult Physician Routine Consulting Provider: Sonia Prather Consult Reason/Comments: post tavr Do you want consulting provider notified?: Already Contacted Consult Physician Routine Consulting Provider: Fredrick Weiss Consult Reason/Comments: med mgmt Do you want consulting provider notified?: Yes Primary care physician: Fredrick Weiss Hospital Course: MEDICAL HISTORY: 1. Severe symptomatic aortic valve stenosis with mobile calcification on the left coronary cusp, NYHA class III symptoms 2. Chronic systolic heart failure 3. Persistent atrial fibrillation, on Eliquis for anticoagulation 4. COPD with a preoperative FEV1 1 showing a predicted value of 36% with a base volume of 1.06 L 5. Hypertension 6. Hyperlipidemia 7. Obstructive sleep apnea with home CPAP use 8. History of prostate cancer, on Flomax as an outpatient 9. Diabetes mellitus type 2 with a preoperative hemoglobin A1c of 8.6% 10. Hypothyroid 11. Psoriasis 12. Remote history of nicotine dependence 13. History of anxiety 14. History of depression PROCEDURE: 1. Percutaneous Aortic Valve Implantation using a 34 mm Evolut-FX 2. Transesophageal echocardiography (performed by anesthesia) 3. Ultrasound guided access and repair of right femoral artery access site by Perclose closure device 4. Placement of temporary pacemaker wire 5. Aortic root angiography 6. [place] embolic protection device placement HISTORY OF PRESENT ILLNESS: This is a 71-year-old gentleman who follows on an outpatient basis with Dr. Fredrick Weiss for his primary care and Dr. Francisco for his cardiology care. He has a known history of severe aortic valve stenosis and has been symptomatic with increased exertional dyspnea, chest discomfort, increased fatigue and edema to his bilateral lower extremities consistent with NYHA class III symptoms. He had been referred to structural heart clinic for evaluation for transcatheter aortic valve replacement after heart catheterization and echocardiogram were completed. Echocardiography demonstrated a moderately decreased systolic function with an EF of 35-40%, a trileaflet aortic valve with severe aortic valve stenosis, a calcified mobile echodensity on the commissure of the left and noncoronary cusp, and mild aortic valve insufficiency. Heart catheterization showed relatively normal coronary arteries with only 10-20% proximal and mid LAD stenosis, and severe aortic valve stenosis with a mean gradient of 55 mmHg. After workup was completed STS risk score was calculated along with incremental risk and the patient was felt to be intermediate risk for surgical aortic valve replacement, therefore transcatheter aortic valve replacement was recommended. The usual course of TAVR was discussed in detail the patient, risks and benefits were reviewed, shared decision making between cardiology, cardiothoracic surgery, and the patient took place and the patient consented to proceed with the procedure. HOSPITAL COURSE: The patient was brought to the hospital on 05/14/22, was taken to the extended stay area, prepared in the usual fashion, and subsequently taken to the cardiac catheterization laboratory where Dr. Francisco and Dr. Prather completed TAVR procedure under general anesthesia with fluoroscopy and SACHA. Prior to the deployment of the TAVR a transesophageal echocardiogram showed a severely calcified aortic valve, a mass sitting on the left coronary cusp which is mobile but didn't appear to be obstructing the left main system, a mean gradient across the aortic valve of 72 mmHg, a peak gradient of 92 mmHg, an aortic valve area of 0.7 cm and mild aortic valve insufficiency. The valve was deployed under rapid ventricular pacing and proceeded without event. At the end of the procedure there was no significant gradient, hemodynamics were felt to be acceptable, and there was trace central aortic valve regurgitation and also mild paravalvular regurgitation. Upon completion of the procedure the patient remained intubated and was transferred to the cardiovascular intensive care unit where he was recovered and monitored hemodynamically. He was subsequently extubated on 05/15/2022 at 10:38 AM, his oxygen was titrated down, he was tolerating oral diet, his pain was controlled, follow-up TTE was acceptable, and he was ready to be discharged to home on postoperative day #2. He has received written and verbal instruction regarding his medications, activity restrictions, signs and symptoms requiring physician notification, and his follow-up appointments. Plan - Discharge Summary Discharge Rx Participant: No New Discharge Prescriptions: New Amiodarone [Cordarone] 200 mg PO DAILY #30 tab Potassium Chloride ER [K-Dur 20] 20 meq PO BID #60 tab Acetaminophen Tab [Tylenol] 650 mg PO Q4HR PRN tab PRN Reason: Fever And/Or Mild Pain Metoprolol Succinate (ER) [Toprol XL] 100 mg PO DAILY #30 tab Clopidogrel [Plavix] 75 mg PO DAILY #30 tab Metoprolol Succinate (ER) [Toprol XL] 25 mg PO DAILY #30 tab Continue Levothyroxine Sodium [Synthroid] 225 mcg PO DAILY metFORMIN HCL 1,000 mg PO BID Tamsulosin [Flomax] 0.4 mg PO DAILY Bumetanide [BUMEX] 2 mg PO BID Glimepiride [Amaryl] 2 mg PO BID Apixaban [Eliquis] 5 mg PO BID Atorvastatin [Lipitor] 20 mg PO HS traMADol HCL 50 mg PO Q6H PRN PRN Reason: Pain Multivitamins, Thera [Multivitamin (formulary)] 1 tab PO DAILY L.acidoph,Paracasei, B.lactis [Probiotic] 1 each PO DAILY Discontinued Metoprolol Succinate [Toprol XL] 100 mg PO DAILY Aspirin 81 mg PO DAILY Amiodarone [Cordarone] 400 mg PO BID #90 tab Discharge Medication List Apixaban [Eliquis] 5 mg PO BID 04/18/22 [History] Atorvastatin [Lipitor] 20 mg PO HS 04/18/22 [History] Bumetanide [BUMEX] 2 mg PO BID 04/18/22 [History] Levothyroxine Sodium [Synthroid] 225 mcg PO DAILY 04/18/22 [History] Tamsulosin [Flomax] 0.4 mg PO DAILY 04/18/22 [History] metFORMIN HCL 1,000 mg PO BID 04/18/22 [History] traMADol HCL 50 mg PO Q6H PRN 04/29/22 [History] Glimepiride [Amaryl] 2 mg PO BID 05/09/22 [History] L.acidoph,Paracasei, B.lactis [Probiotic] 1 each PO DAILY 05/09/22 [History] Multivitamins, Thera [Multivitamin (formulary)] 1 tab PO DAILY 05/09/22 [History] Acetaminophen Tab [Tylenol] 650 mg PO Q4HR PRN tab 05/16/22 [Rx] Amiodarone [Cordarone] 200 mg PO DAILY #30 tab 05/16/22 [Rx] Clopidogrel [Plavix] 75 mg PO DAILY #30 tab 05/16/22 [Rx] Metoprolol Succinate (ER) [Toprol XL] 25 mg PO DAILY #30 tab 05/16/22 [Rx] Metoprolol Succinate (ER) [Toprol XL] 100 mg PO DAILY #30 tab 05/16/22 [Rx] Potassium Chloride ER [K-Dur 20] 20 meq PO BID #60 tab 05/16/22 [Rx] Follow up Appointment(s)/Referral(s): Fredrick Weiss MD [Primary Care Provider] - As Needed Federico Francisco DO [STAFF PHYSICIAN] - 05/23/22 1:45 pm (Your appointment in 1 week is for groin check. You also have a 30 day post TAVR echo and appointment with Dr. Francisco 06/13/2022 @ 1:45 pm, and a 1 year post TAVR echo and appointment with Dr. Francisco 04/14/2023 @ 1 pm) Clinic,Structural Heart [NON-STAFF] - 1 Week (Please come to the Valve Clinic office 06/13/2022 @ 1:15 pm before your appointment with Dr. Francisco, and 04/14/2023 @ 12:30 pm before your appointment with Dr. Francisco) Mariano Andujar MD [STAFF PHYSICIAN] - 1 Week Ambulatory/Diagnostic Orders: Complete Blood Count w/diff [LAB.AMB] Time Frame: 04/14/23, Facility: [facility], Location: [facility] Complete Blood Count w/diff [LAB.AMB] Time Frame: 06/13/22, Facility: [facility], Location: [facility] Comprehensive Metabolic Panel [LAB.AMB] Time Frame: 06/13/22, Facility: [facility], Location: [facility] Comprehensive Metabolic Panel [LAB.AMB] Time Frame: 04/14/23, Facility: [facility], Location: [facility] Activity/Diet/Wound Care/Special Instructions: DISCHARGE INSTRUCTIONS: 1. No driving for 1 week, or until physician gives their ok. 2. No lifting, pushing, or pulling more than 5-10 pounds for 1 week. 3. Hold both groins when you cough or sneeze for the next 2 weeks. Bruising is common, but report increased swelling, pain or fever >101F 4. Shower daily. No pool, hot tub, or bathtub for 1 week 5. No powders, lotions, ointments on incisions. 6. No straining, including for bowel movements. Use stool softner if necessary 7. Stairs are not an issue. Go slowly, using handrail and take 1 step at a time. Ambulate several times daily 8. Continue pain control per as needed orders. 9. Take only the medications listed on your discharge form 10. Eat low salt (limited to 2 grams or 2000 milligrams) daily, avoid adding salt, avoid canned/processed foods 11. Take your weight daily in the morning and record, bring with you to your follow up appointments 12. Keep all follow up appointments. You will need a valve clinic appointment at 30 days and 1 year post procedure for follow up 13. You have been referred to and are expected to begin Cardiac Rehab in approximately 4 weeks. 14. You will need antibiotics prior to any dental work, including cleanings, and any surgeries to prevent Endocarditis (bacterial infection in your heart) For any questions or concerns please call your valve coordinators: Tiffany or Obed @ Discharge Disposition: HOME SELF-CARE
[2022-05-16 11:38] VITALS: BP 94/63; PULSE 101
--- NOTE | 2022-05-16 14:13 | P.PN ---
Subjective Progress Note Date: 05/16/22 Principal diagnosis: severe aortic stenosis, status post T aVR postoperative day number 2 This is a 71-year-old male patient was currently being seen in the intensive care unit following his percutaneous aortic valve implantation/to have her procedure. The patient has symptomatic severe aortic stenosis. The patient was seen and the valve clinic and the patient was given the procedure today. The patient is currently postop day #0. The approach was the right femoral appro ach. The patient is morbidly obese. He was unable to lay down flat without having any major difficulties. Based on that, the patient was intubated and he was Intubated postop and he was brought into the intensive care unit on a mechanical ventilator on assist control mode at the rate of 14, tidal volume of 550, FiO2 of 100% with a PEEP of 10. His current pulse ox is 98%. He is sedated with propofol running at 10 mcg/kg/m. Blood gases are still pending for now. Chest x-ray post procedure shows ET tube being in a good location. The patient also has an OG tube in place. The patient has widened mediastinum and cardiomegaly. Mild pulmonary vascular congestion is also seen. At this point in time, the patient's blood pressure is in order of 80/58 based on arterial line. Pulse ox is 98%. Blood. Still pending. Urine output is in order of 100 mL in the Chase catheter. Note that the Chase catheter was just inserted. Note that this is a higher risk case. The patient is known to have severe aortic stenosis at baseline. The patient also has a cardiomyopathy with an ejection fraction of 35-40%. His preoperative FEV1 is 1 L. He is known to have obstructive sleep apnea maintained on CPAP therapy. He has history of prostate cancer, diabetes, hypothyroidism, hypertension hyperlipidemia and previous history of psoriasis, chronic atrial fibrillation. WBC count is11.5 with a h emoglobin of 12.8. Normal coagulation profile. serum bicarb of 36 and a sodium of 136 and a potassium level of 3.1. Blood sugars at 253. 05/15/2022, the patient remains intubated. He was kept intubated the mechanical ventilator overnight as the patient is morbidly obese and he was borderline h ypotensive postop and he was sedated and based on his underlying obesity and sleep apnea, we decided to proceed with morning extubation. This procedure was unsuccessful yesterday. This morning, he has taken off the propofol and the patient is receiving a sedation holiday. Gradually waking up. He is ventilated is currently at a rate of 14, tidal volume of 550, FiO2 of 50% with a PEEP of 10. Peak air pressures around 30. Blood gas showed a pH of 7.44 with a pCO2 51 and pO2 of 110. Chest x-ray shows cardiomegaly, if she was in a good location, no airspace disease. No consolidation. No evidence of any pneumothorax. There is some mild pulmonary vascular congestion as noted earlier. Otherwise, the patient is producing adequate amount of urine output. He was placed on pressors and norepinephrine is currently off. The patient is also off insulin drip. His blood sugars under adequate control. His proBNP level was 857. He is afebrile. He is hemodynamically stable. He remains in atrial fibrillation. He does have an underlying bundle branch block pattern also. Reevaluated today on 05/16/22, patient is doing well, however his O2 saturation is marginal in the 88% range. Patient would like to go home, I believe the patient could be discharged home on home oxygen and follow-up with Dr. Andujar in one week. Chest x-ray today showed minimal left lower lobe atelectasis. Daisy bt infiltrate Objective - Vital Signs Vital signs: Vital Signs Temp 97.9 F 05/16/22 08:00 Pulse 101 H 05/16/22 11:00 Resp 20 05/16/22 11:00 BP 94/63 05/16/22 11:00 Pulse Ox 94 L 05/16/22 08:00 FiO2 94 05/16/22 08:18 Intake & Output 05/15/22 05/16/22 05/16/22 18:59 06:59 18:59 Intake Total 2151.604 100 260 Output Total 1625 1000 1300 Balance 526.604 -900 -1040 Weight 152 kg 152.6 kg Intake: IV 421 100 20 ART Line 21 Invasive Line 1 20 40 10 Invasive Line 2 20 20 Invasive Line 3 20 40 10 LR @ 20mls/hr 40 Potassium Chloride 10 meq 200 In Water For Injection 1 100ml.bag @ 100 mls/hr IVPB Q1HR [facility] Rx#: [id number] ceFAZolin 3 gm In Sodium 100 Chloride 0.9% 100 ml @ 100 mls/hr IVPB Q8HR [facility] Rx#:[id number] Intake, IV Titration 70.604 Amount Insulin Regular 100 unit 0 In Sodium Chloride 0.9% 100 ml @ Per Protocol IV .Q0M [facility] Rx#:[id number] propofoL 1,000 mg In 70.604 Empty Bag 1 bag @ Titrate IV .Q0M [facility] Rx#: [id number] Oral 1660 240 Tube Feeding 0 Blood Product 0 Output: Urine 1625 1000 1300 Other: Voiding Method Toilet Toilet Toilet ABP, PAP, CO, CI - Last Documented Arterial Blood Pressure 96/51 - Exam Physical Exam: Revealed 71-year-old white male in no distress HEENT:[Neck is supple.] [No neck masses.] [No thyromegaly.] [No JVD.] Chest: [ diminished breath sounds at the bases no rhonchi and no wheezes Cardiac Exam: irregular irregular rhythm[Normal S1 and S2, no S3 gallop, no murmur.] Abdomen: [Soft, nontender, no megaly, no rebound, no guarding, normal bowel sounds.] Extremities: [No clubbing, no edema, no cyanosis.] Neurological Exam: [No focal neurologic deficit.] alert oriented 3 psychiatric: Normal mood affect and normal mental status exam - Labs CBC & Chem 7: 05/16/22 06:06 05/16/22 06:06 Labs: Abnormal Lab Results - Last 24 Hours (Table) 05/15/22 05/15/22 05/15/22 Range/Units 04:30 16:10 16:10 RBC (4.30-5.90) m/uL Hgb (13.0-17.5) gm/dL Hct (39.0-53.0) % Potassium 3.4 L (3.5-5.1) mmol/L Carbon Dioxide (22-30) mmol/L BUN (9-20) mg/dL Glucose (74-99) mg/dL POC Glucose (mg/dL) (70-110) mg/dL Hemoglobin A1c 8.5 H (0.0-6.0) % Calcium (8.4-10.2) mg/dL Total Bilirubin (0.2-1.3) mg/dL Troponin I 0.175 H* (0.000-0.034) ng/mL 05/15/22 05/15/22 05/16/22 Range/Units 16:42 20:39 06:06 RBC 3.70 L (4.30-5.90) m/uL Hgb 11.2 L (13.0-17.5) gm/dL Hct 34.0 L (39.0-53.0) % Potassium (3.5-5.1) mmol/L Carbon Dioxide (22-30) mmol/L BUN (9-20) mg/dL Glucose (74-99) mg/dL POC Glucose (mg/dL) 206 H 204 H (70-110) mg/dL Hemoglobin A1c (0.0-6.0) % Calcium (8.4-10.2) mg/dL Total Bilirubin (0.2-1.3) mg/dL Troponin I (0.000-0.034) ng/mL 05/16/22 05/16/22 Range/Units 06:06 06:06 RBC (4.30-5.90) m/uL Hgb (13.0-17.5) gm/dL Hct (39.0-53.0) % Potassium 3.4 L (3.5-5.1) mmol/L Carbon Dioxide 34 H (22-30) mmol/L BUN 24 H (9-20) mg/dL Glucose 163 H (74-99) mg/dL POC Glucose (mg/dL) 174 H (70-110) mg/dL Hemoglobin A1c (0.0-6.0) % Calcium 8.0 L (8.4-10.2) mg/dL Total Bilirubin 2.2 H (0.2-1.3) mg/dL Troponin I (0.000-0.034) ng/mL Microbiology - Last 24 Hours (Table) 05/14/22 16:40 Gram Stain - Final Sputum Sputum Culture - Final Assessment and Plan Assessment: impression: Severe symptomatic aortic stenosis, status post T aVR postoperative day #2 suspect underlying obstructive sleep apnea syndrome chronic atrial fibrillation postoperative atelectasis, expected acute hypoxic respiratory failure secondary to postoperative atelectasis and underlying obstructive sleep apnea syndrome, expected recommendation: Agree with discharge planning home oxygen at 2 L needs to have follow-up with Dr. Andujar for all his obstructive sleep apnea syndrome and his oxygen follow-up. Resume Home medications will clear for discharge. Time with Patient: Less than 30
--- NOTE | 2022-05-17 07:55 | PN ---
PROGRESS NOTE DATE OF SERVICE: 05/16/2022 SUBJECTIVE: This 71-year-old gentleman was admitted after TAVR, had hyperglycemia. The patient was treated with insulin. The patient was extubated. The patient was then stated to go home. The sugars are slightly elevated. The patient is taking metformin . No chest pain. No palpitation. PHYSICAL EXAMINATION: VITAL SIGNS: Pulse is 112, blood pressure 94/60, respiration 20. CHEST: Clear to auscultation. CARDIOVASCULAR: S1, S2 muffled. ABDOMEN: Soft. LABORATORY DATA: Reviewed. ASSESSMENT: 1. Status post transcatheter aortic valve replacement. 2. Diabetes mellitus type 2. 3. Chronic atrial fibrillation. 4. Cardiomyopathy. 5. Multiple medical issues. RECOMMENDATIONS: Recommended to continue current medications. Resume home medications. Monitor Accu-Cheks a.c. Closely follow with the primary care physician. The rest of the recommendations per Cardiovascular Surgery. Further recommendations to follow. WICHO / KEVINN: [id number] / MTDD
[2022-05-17] MEDS ORDERED: METOPROLOL SUCCINATE (ER) 100 MG TAB.ER.24H PO SCH (09:00)
[2022-05-17] MEDS ORDERED: METOPROLOL SUCCINATE (ER) 25 MG TAB.ER.24H PO SCH (09:00)
== END 2022-05-16 12:15 | disposition home or self-care (01) | DRG 266 ==
LOC: 2ORMAIN 05:57 → 2SICU 13:23
PROVIDERS: ADMIT Internal Medicine; ATTEND Internal Medicine
PROC: 0D9670Z Drainage of Stomach with Drainage Device, Via Natural or Artificial Opening (ICD-10-PCS; principal; 2022-05-14 08:00)
PROC: X2A5312 Cerebral Embolic Filtration, Dual Filter in Innominate Artery and Left Common Carotid Artery, Percutaneous Approach, New Technology Group 2 (ICD-10-PCS; principal; 2022-05-14 08:00)
PROC: B246ZZ4 Ultrasonography of Right and Left Heart, Transesophageal (ICD-10-PCS; principal; 2022-05-14 08:00)
PROC: 02RF38Z Replacement of Aortic Valve with Zooplastic Tissue, Percutaneous Approach (ICD-10-PCS; principal; 2022-05-14 08:00)
DX: I35.0 Nonrheumatic aortic (valve) stenosis (principal); Z00.6 Encounter for examination for normal comparison and control in clinical research program; J96.01 Acute respiratory failure with hypoxia; J96.02 Acute respiratory failure with hypercapnia; I42.9 Cardiomyopathy, unspecified; I48.19 Other persistent atrial fibrillation; I50.22 Chronic systolic (congestive) heart failure; J98.11 Atelectasis; Z68.43 Body mass index [BMI] 50.0-59.9, adult; E03.9 Hypothyroidism, unspecified; E11.65 Type 2 diabetes mellitus with hyperglycemia; E66.01 Morbid (severe) obesity due to excess calories; E78.5 Hyperlipidemia, unspecified; G47.33 Obstructive sleep apnea (adult) (pediatric); I11.0 Hypertensive heart disease with heart failure; I25.10 Atherosclerotic heart disease of native coronary artery without angina pectoris; E86.1 Hypovolemia; J44.9 Chronic obstructive pulmonary disease, unspecified; F32.A Depression, unspecified; I35.8 Other nonrheumatic aortic valve disorders; I95.9 Hypotension, unspecified; F41.9 Anxiety disorder, unspecified; I44.7 Left bundle-branch block, unspecified; L40.9 Psoriasis, unspecified; Z79.01 Long term (current) use of anticoagulants; Z79.82 Long term (current) use of aspirin; Z79.84 Long term (current) use of oral hypoglycemic drugs; Z79.890 Hormone replacement therapy; Z79.899 Other long term (current) drug therapy; Z85.46 Personal history of malignant neoplasm of prostate; Z87.891 Personal history of nicotine dependence; Z92.3 Personal history of irradiation; Z71.3 Dietary counseling and surveillance
CPT/HCPCS: 33210; 33362; 33370; 71045; 80053; 82330; 82805; 83036; 83605; 83735; 83880; 84132; 84145; 84484; 85025; 85027; 85610; 85730; 86850; 86900; 86901; 87070; 87205; 93306; 93312; 93320; 93325; 94002; 94003; 94640; 94660; 94760

== ENCOUNTER → 2023-04-07 | Outpatient (CLI) | payer MEDICARE ==
[2023-04-07 15:16] LABS: Basophils # (A) 0.07 X 10*3/uL (0.00-0.10); Eosinophils # (A) 0.31 X 10*3/uL (0.04-0.35); Eosinophils % (A) 4.4 %; HCT 38.1 % (39.6-50.0); HGB 12.8 g/dL (13.0-17.0); Lymphocytes # (A) 1.79 X 10*3/uL (0.90-5.00); Lymphocytes % (A) 25.6 %; MCH 31.3 pg (27.0-32.0); MCHC 33.6 g/dL (32.0-37.0); MCV 93.2 FL (80.0-97.0); Mean Platelet Volume 8.8 FL (9.5-12.2); Monocytes # (A) 0.62 X 10*3/uL (0.20-1.00); Monocytes % (A) 8.9 %; NRBC Per 100 WBC 0 X 10*3/uL (0.00-0.01); Neutrophils # (A) 4.16 X 10*3/uL (1.80-7.70); Neutrophils % (A) 59.5 %; Platelet Count 286 X 10*3/uL (140-440); RBC 4.09 X 10*6/uL (4.40-5.60); RDW 14.6 % (11.5-14.5); WBC 6.99 X 10*3/uL (4.50-10.00)
[2023-04-07 15:32] LABS: ALT 27 U/L (10-49); AST 30 U/L (14-35); Albumin/Globulin Ratio 1.43 Ratio (1.60-3.17); Alkaline Phosphatase 71 U/L (41-126); BUN/Creat Ratio 15.78 Ratio (12.00-20.00); Blood Urea Nitrogen 14.2 mg/dL (9.0-27.0); Calcium 9.4 mg/dL (8.7-10.3); Carbon Dioxide 27.2 mmol/L (21.6-31.8); Chloride 100 mmol/L (96-109); Chol/HDL Ratio 2.35 Ratio; Globulin 2.8 g/dL (1.6-3.3); Glucose 171 mg/dL (70-110); LDL Cholesterol,Calculated 36.9 mg/dL (0.0-131.0); Potassium 3.7 mmol/L (3.5-5.5); Sodium 142 mmol/L (135-145); T4, Free (Free Thyroxine) 2.11 ng/dL (0.80-1.80); Total Protein 6.8 g/dL (6.2-8.2)
== END | disposition home or self-care (01) ==
LOC: LABWHC1 09:27
PROVIDERS: ATTEND Family Medicine
DX: E78.5 Hyperlipidemia, unspecified (principal); Z95.4 Presence of other heart-valve replacement
CPT/HCPCS: 36415; 80053; 80061; 83036; 84439; 84443; 85025